=== PATIENT | female | born 1940 | race Caucasian/White ===

== ENCOUNTER 2018-01-15 12:30 | Inpatient (IN) | payer MEDICARE, MEDICAID ==
[2018-01-15] MEDS ORDERED: oxyCODONE/Acetamin 5/325 MG* TAB PO ONE (14:44)
--- NOTE | 2018-01-15 14:45 | ED ---
Back Pain - HPI Summary HPI Summary: Pt is a 77 y/o female who presents to the ED c/o low back pain. She states the pain began 4-5 days ago, is described as stabbing, and is located in her lower back. Pt denies any injury or fall. She denies any hematuria, incontinence, or loss of sensation. As per , the pt cannot walk without holding onto something due to the pain. Pt has taken Aleve but it has not helped her symptoms. Pt rates the pain as 4/4. She notes that the back pain started after she had her right knee twisted during an injection at [employer] PMHx DM. - History of Current Complaint Chief Complaint: EDBackInjuryPain Stated Complaint: BACK PAIN Time Seen by Provider: 01/15/18 14:30 Hx Obtained From: Patient, Family/Supervisor [employer] - Onset/Duration: Gradual Onset, Lasting Days - 4-5, Still Present Timing: Constant Back Pain Location: Is Discrete @ - Low back Severity Currently: Severe Pain Intensity: 8 Pain Scale Used: 0-10 Numeric Character: Sharp - Stabbing Aggravating Symptom(s): Movement, Walking Alleviating Symptom(s): Nothing Associated Signs And Symptoms: Negative: Numbness, Tingling, Bladder Incontinence, Bowel Incontinence - Allergies/Home Medications Allergies/Adverse Reactions: Allergies Allergy/AdvReac Type Severity Reaction Status Date / Time No Known Allergies Allergy Verified 01/15/18 12:34 PMH/Surg Hx/FS Hx/Imm Hx Endocrine/Hematology History: Reports: Hx Diabetes Cardiovascular History: Reports: Hx Hypertension Denies: Hx Pacemaker/ICD Respiratory History: Denies: Hx Asthma Sensory History: Denies: Hx Hearing Aid Psychiatric History: Denies: Hx Panic Disorder - Surgical History Surgery Procedure, Year, and Place: OOPHERECTOMY Infectious Disease History: No Infectious Disease History: Denies: Traveled Outside the [place] in Last 30 Days - Family History Known Family History: Positive: Diabetes - Social History Alcohol Use: None Hx Substance Use: No Substance Use Type: Reports: None Hx Tobacco Use: Yes Smoking Status (MU): Former Smoker Review of Systems Positive: flank pain. Negative: hematuria, incontinence Negative: Paresthesia, Numbness All Other Systems Reviewed And Are Negative: Yes Physical Exam - Summary Physical Exam Summary: Appearance: Well appearing, no pain distress Skin: warm, dry, reflects adequate perfusion Head/face: normal Eyes: EOMI, PRECIOUS ENT: normal Neck: supple, non-tender Respiratory: CTA, breath sounds present Cardiovascular: RRR, pulses symmetrical Abdomen: tenderness to right flank, soft Bowel: present Musculoskeletal: normal, strength/ROM intact Neuro: normal, sensory motor intact, A&Ox3 Triage Information Reviewed: Yes Vital Signs On Initial Exam: Initial Vitals Temp Pulse Resp BP Pulse Ox 97 F 78 16 124/110 97 01/15/18 12:35 01/15/18 12:35 01/15/18 12:35 01/15/18 12:35 01/15/18 12:35 Vital Signs Reviewed: Yes Diagnostics - Vital Signs Vital Signs Temp Pulse Resp BP Pulse Ox 01/15/18 12:35 97 F 78 16 124/110 97 - Laboratory Result Diagrams: 01/15/18 14:47 01/15/18 14:47 Lab Statement: Any lab studies that have been ordered have been reviewed, and results considered in the medical decision making process. - CT CT A/P CT Interpretation: No Acute Changes - No evidence of obstructive uropathy is noted. 25% compression of L3 vertebra. ED physician reviewed radiology report. CT Interpretation Completed By: Radiologist Back Pain Course/Dx - Course Course Of Treatment: Pt is a 77 y/o female who presents to the ED c/o low back pain. She states the pain began 4-5 days ago, is described as stabbing, and is located in her lower back. Pt denies any injury or fall. She denies any hematuria, incontinence, or loss of sensation. As per , the pt cannot walk without holding onto something due to the pain. Pt has taken Aleve but it has not helped her symptoms. A physical exam revealed tenderness to right flank. A CT A/P revealed No evidence of obstructive uropathy is noted. 25% compression of L3 vertebra. Final dx are back pain, L3 compression deformity, and unable to ambulate. Pt is admitted and is agreeable with this plan. - Diagnoses Provider Diagnoses: Back pain, Unable to ambulate Discharge - Sign-Out/Discharge Documenting (check all that apply): Patient Departure - Admit - Discharge Plan Condition: Stable Disposition: ADMITTED TO [facility] Referrals: No Primary Care Phys,NOPCP [Primary Care Provider] - - Attestation Statements Document Initiated by Scribe: Yes Documenting Scribe: Lindsey Newton Provider For Whom Scribe is Documenting (Include Credential): Mitch Munson MD Scribe Attestation: ILindsey, scribed for Mitch Munson MD on 01/15/18 at 1646.
[2018-01-15 15:00] LABS: ABS Basophils 0.1 10^3/ul (0-0.2); ABS Eosinophils 0.3 10^3/ul (0-0.6); ABS Lymphocytes 1.2 10^3/ul (1.0-4.8); ABS Monocytes 0.8 10^3/ul (0-0.8); ABS Neutrophils 6.4 10^3/ul (1.5-7.7); ABS Nucleated RBC 0 10^3/ul; Eosinophil % 3.2 % (0-6); Hematocrit 40 % (35-47); Hemoglobin 13.3 g/dl (12.0-16.0); Lymphocyte % 14.1 % (25-47); Mean Corpuscular HGB Conc 34 g/dl (31-36); Mean Corpuscular Hemoglobin 28 pg (27-31); Mean Corpuscular Volume 85 fL (80-97); Mean Platelet Volume 7.2 um3 (7.4-10.4); Nucleated Red Blood Cells % 0.1; Platelet Count 276 10^3/ul (150-450); Red Blood Count 4.69 10^6/ul (4.00-5.40); Red Cell Distribution Width 14 % (10.5-15); White Blood Count 8.8 10^3/ul (3.5-10.8)
[2018-01-15 15:08] LABS: INR 0.96 (0.77-1.02)
--- NOTE | 2018-01-15 15:16 | RAD ---
Indication: Right flank pain. CT of the abdomen and pelvis was performed without oral or IV contrast administration. Coronal and sagittal reconstructed images were obtained. Lung bases demonstrate no pleural fluid, nodules or masses. Heart is of normal size without evidence of pericardial effusion. There is a axial-type hiatal hernia noted. The liver is normal in size. No focal lesions or intrahepatic duct dilatation is noted. The gallbladder demonstrates no calcified gallstones. No pericholecystic fluid or wall thickening is noted. The pancreas is atrophic without evidence of mass or pancreatic duct dilatation. Spleen is normal size. No adrenal masses are noted. The kidneys demonstrate no hydronephrosis in either kidney. Atherosclerotic aorta is noted. No aneurysmal dilatation of the abdominal aorta is noted. CT of the pelvis demonstrates no retroperitoneal or pelvic lymphadenopathy. The colon is filled with stool. The uterus and ovaries are unremarkable. The bony structures demonstrates compression of the L3 vertebra of approximately 25-50%. Age of this is undetermined. IMPRESSION: No evidence of obstructive uropathy is noted. 25% compression of L3 vertebra.
[2018-01-15 15:38] LABS: EGFR Non-African American 79.6 (>60)
--- NOTE | 2018-01-15 18:02 | RAD ---
INDICATION: Atraumatic low back pain. COMPARISON: Same day CT of the abdomen and pelvis TECHNIQUE: 3 views of the lumbar spine were obtained. FINDINGS: There is age indeterminant compression deformity of the L3 vertebral body. The sclerotic appearance of the vertebral body would indicate a chronic process. At other lower thoracic and lumbar levels there is loss of intervertebral disc height. There is anterior marginal osteophyte formation, exuberant between L2/L3. The vertebral bodies are otherwise intact and appropriately aligned in the lateral plane. On the AP view there is levoconvex curvature with the apex at L2. . IMPRESSION: Degenerative changes of the lower thoracic and lumbar spine as described above. The sclerotic loss of vertebral height at L3 is chronic in appearance but there are no prior images of the lumbar spine for comparison to BE certain on chronicity. If the patient is exhibiting acute low back pain superior characterization can be made with MRI.
[2018-01-15] MEDS: Sertraline* 100 MG TAB PO SCH (20:13)
[2018-01-15] MEDS: Heparin VIAL(*) 5000 UNITS/ML VIAL (FIVE THOUSAND) SUBCUT SCH (21:23)
--- NOTE | 2018-01-15 22:02 | RAD ---
EXAM: MR Lumbar Spine Without Intravenous Contrast CLINICAL HISTORY: 77 years old, female; Pain; Low back pain; Patient HX: C/O stabbing pain in low back x 4-5 days, denies injury or fall; Additional info: Low back pain, compression deformity TECHNIQUE: Magnetic resonance images of the lumbar spine without intravenous contrast in multiple planes. COMPARISON: No relevant prior studies available. FINDINGS: Vertebrae: Modic type changes at the endplates of L2-L3 There is increased STIR signal in the endplates of L3 and L4. There is irregularity of the inferior endplate of L3 with small amount of fluid in the intervertebral disc. Findings are suspicious for discitis osteomyelitis at the L3-L4. No acute fracture. Epidural space: No paraspinal or epidural abscess. Spinal cord: Unremarkable. Normal signal. Soft tissues: Unremarkable. DISCS/SPINAL CANAL/NEURAL FORAMINA: L1-L2: Unremarkable. No stenosis. L2-L3: Disc bulge. Bilateral facet hypertrophy. Moderate bilateral neural foramina narrowing. No spinal canal stenosis. L3-L4: Disc bulge. Bilateral facet hypertrophy. There is ligamentum flavum hypertrophy. Moderate spinal canal stenosis. Moderate left and severe right neural foramina narrowing. L4-L5: Disc bulge. Bilateral facet hypertrophy. Moderate bilateral neural foramina narrowing. No spinal canal stenosis. L5-S1: Disc bulge. Bilateral facet hypertrophy. No spinal canal stenosis. Moderate bilateral neural foramina narrowing. IMPRESSION: Increased STIR signal in the endplates of L3-L4 with small amount of fluid in the intervertebral disc and the irregularity of the inferior endplate of L3. Finding suspicious for discitis osteomyelitis. No epidural or paraspinal abscess. Multilevel degenerative disc disease with neural foramina narrowing as described above. Moderate spinal canal stenosis at L3-L4.
--- NOTE | 2018-01-15 22:34 | HP ---
CC: Dr. Shane Bhandari * ADMISSION HISTORY AND PHYSICAL: DATE OF ADMISSION: 01/15/18 PRIMARY CARE PROVIDER: Dr. Shane Bhandari. ATTENDING FOR THIS ADMISSION: Dr. Valeriy Gusman.* (DICTATED BY EVERT YEUNG NP) CHIEF COMPLAINT: Lower back pain with inability to ambulate. HISTORY OF PRESENT ILLNESS: This is a very pleasant 77-year-old female patient who was in her usual state of health and approximately 4 to 5 days ago after she had had an injection in her right knee with Dr. Martin for a benign lipoma and some knee pain, she reported she started having some low back pain. The patient denies any trauma or injury to the area. Denies any falls. Denies any precipitating events other than some manipulation of the knee when she was in the orthopedist's office for her injection. The patient's , who is at the bedside, states that he also noticed that the patient was having to hold on to furniture and counter some things from the house to ambulate until got to the point where the pain became rather unbearable and the patient was having difficulty with ambulation. She presented to the emergency department for evaluation of her back pain. A CAT scan of the abdomen and pelvis was completed in the ED showing that she has approximately 25% compression of the L3 vertebra. The patient has no other acute findings on the CT, although this is not the most optimal test for evaluation of back pain; however, it does appear that this is new compression. The patient does not report any prior history again of trauma or injury. So, it is unclear how old or how new this compression deformity is. PAST MEDICAL HISTORY: Significant for hypertension, diabetes mellitus type 2, hyperlipidemia, vitamin D deficiency, and some mild cognitive impairment with short- term deficit. PAST SURGICAL HISTORY: Significant for oophorectomy many years ago. MEDICATIONS: At home include: 1. Sertraline 100 mg by mouth twice daily. 2. Amlodipine 5 mg by mouth daily. 3. Vitamin D3 5000 units by mouth daily. 4. CoQ10 of 200 mg daily. 5. Vitamin B12 of 500 mcg daily. 6. Aspirin 325 mg daily. 7. Cranberry extract 200 mg daily. 8. Atenolol 75 mg daily. 9. Metformin 500 mg b.i.d. SOCIAL HISTORY: The patient has a very remote history of smoking. Does not drink alcohol. Denies any illicit drug use. She lives at home with her , Reed, who is her healthcare proxy and is at the bedside currently. Reed's phone number at home is [phone]. Cell phone number is [phone]. The patient is a full code. REVIEW OF SYSTEMS: The patient denies any fever, fatigue, or chills. No chest pain, no shortness of breath, no palpitations. No abdominal pains. No urinary complaints. She does complain of localized back pain in the lower lumbar region. Denies any paresthesias or pain. No radicular complaints down the legs. Reports some weakness in the anterior thighs with ambulation. No further constitutional complaints. PHYSICAL EXAMINATION GENERAL: The patient is alert, well-appearing, in no acute distress. VITAL SIGNS: Currently, blood pressure 124/110, respiratory rate 16, heart rate 78, O2 saturation 97% on room air, temperature is 97.0. HEENT: The patient is atraumatic, normocephalic. PERRLA with nonicteric sclerae. NECK: Supple. Nontender. No JVD noted and no carotid bruit auscultated. LUNGS: Clear bilaterally to auscultation with no wheezing, rhonchi, or rales. CARDIOVASCULAR: S1, S2 present. Rate and rhythm are regular. No murmurs, gallops, or rubs noted. ABDOMEN: Soft, nontender, and nondistended. Positive bowel sounds in all 4 quadrants. No organomegaly noted. : Deferred. MUSCULOSKELETAL: There is no clubbing, no cyanosis, and no edema. She does have a soft tissue mass on the medial aspect of the right knee, which is nonpainful and it is fatty in nature. She has no radiating pain from the area. Calves are nontender. She has some point tenderness lateral to the lower lumbar spine; however, she is not guarding. Does not appear to have tenderness over the paraspinal muscles. NEUROLOGIC: She does have some short-term memory deficit, but she is very appropriate. She is alert and oriented x3. Shows no new neuro focalities. Her gross motor and sensation are intact. Her c application developer are equal. She does have a positive straight leg on the left hand side. PSYCHIATRIC: She is cooperative and appropriate. LABORATORY DATA: WBC is 8.8, RBC is 12.69, hemoglobin 13.3, hematocrit 40, and platelets 276,000. Sodium 138, potassium 4.2, chloride 103, CO2 of 28, BUN 20, creatinine 0.71, GFR 79.6, glucose 185, calcium 9.3. Total bilirubin 0.60 , AST 10, ALT 11, alk phos 113. Total protein 6.6, albumin 3.5, globulin 3.1, and lipase is 21. INR is 0.96. IMAGING: CAT scan of the abdomen and pelvis shows no evidence of obstructive uropathy and a 25% compression of the L3 vertebra. IMPRESSION: This is a 77-year-old female patient with no reported history of trauma that presents with what appears to be some compression deformity with intractable back pain in the lumbar region. PLAN: The patient will be admitted to observation. DIAGNOSES: 1. L3 compression. Currently, the CT imaging of the abdomen and pelvis does not really quantify her compression. We will start with plain films in the lumbar region and assess for any fracture. We will give her Percocet 1 tablet q.6 hours as needed for pain. Consult Physical Therapy and Occupational Therapy to determine the patient's ADLs and assessment if needs or any assistive devices if needed. If there are any acute findings on the lumbar films, we will do an MRI of the lumbar in the morning. She is not showing radicular symptoms, I am less concerned about any disk herniation, but if she has some narrowing of the disk spaces on her x-ray, then we may elect to do MRI in the morning. 2. Lipoma of the right knee. She follows with Dr. Martin. She did just have a steroid injection in the right knee approximately 1 week ago. She again is not having any pain and no issues with that. She apparently did have an ultrasound of the area recently and this is stable. 3. Hypertension. We will continue her on her atenolol and Norvasc. She has some diastolic hypertension on the way in, I am not sure if this is an accurate number or if it is related to pain. I have asked the nursing staff to repeat vital signs. 4. Mild cognitive impairment. She was on donepezil in the past. She is not currently. We will continue her sertraline at her current home dose. 5. Vitamin D deficiency. She takes 5000 units of vitamin D per day. I suspect she has underlying osteoporosis given this compression in her lumbar spine. She will likely need an outpatient bone scan, but again we will review the plain films of her spine and further assess from there. 6. For her diet, she can have heart-healthy with caffeine. 7. DVT prophylaxis with heparin 5000 units q.8. 8. Code status. She is full code. Healthcare proxy is her , Reed, as noted above. 9. Disposition. The patient will be admitted to observation status for intractable back pain. The rest of the patient's course will be determined by further diagnostics, laboratories and any other input from other providers as warranted during this admission. This plan of care has been discussed with Dr. Valeriy Gusman, the attending on this admission, and he is in agreement with the plan of care. Time Spent: 60 minutes. EVERT YEUNG, BUILDING CONSTRUCTION CONTRACTOR [id number]/[facility] #: [id number] FABI
[2018-01-15] MEDS ORDERED: Melatonin 3 MG TAB PO PRN (23:32)
[2018-01-16] MEDS: oxyCODONE/Acetamin 5/325 MG* TAB PO PRN ×2 (04:48→18:40)
[2018-01-16 05:06] LABS: Urine Appearance Clear; Urine Blood 2+ (Negative); Urine Color Straw; Urine Ketones Negative (Negative); Urine Protein Negative (Negative); Urine Specific Gravity 1.005 (1.010-1.030); Urine Urobilinogen Negative (Negative)
[2018-01-16] MEDS: Heparin VIAL(*) 5000 UNITS/ML VIAL (FIVE THOUSAND) SUBCUT SCH ×3 (05:46→21:30)
[2018-01-16] MEDS: Aspirin TAB* 325 MG PO SCH (07:40)
[2018-01-16] MEDS: Atenolol TAB* 50 MG PO SCH (07:41)
[2018-01-16] MEDS: Cholecalciferol TAB* 1000 UNITS PO SCH (07:41)
[2018-01-16] MEDS: amLODIPine TAB* 5 MG PO SCH (07:41)
[2018-01-16] MEDS: Sertraline* 100 MG TAB PO SCH ×2 (07:41→21:28)
[2018-01-16] MEDS: Atenolol TAB* 25 MG PO SCH (07:41)
[2018-01-16] MEDS ORDERED: metFORMIN* 500 MG TAB PO SCH (08:00)
[2018-01-16 11:04] LABS: ABS Basophils 0.1 10^3/ul (0-0.2); ABS Eosinophils 0.2 10^3/ul (0-0.6); ABS Lymphocytes 0.9 10^3/ul (1.0-4.8); ABS Monocytes 0.7 10^3/ul (0-0.8); ABS Neutrophils 5.5 10^3/ul (1.5-7.7); ABS Nucleated RBC 0 10^3/ul; Eosinophil % 3.3 % (0-6); Hematocrit 42 % (35-47); Hemoglobin 13.9 g/dl (12.0-16.0); Lymphocyte % 12.4 % (25-47); Mean Corpuscular HGB Conc 33 g/dl (31-36); Mean Corpuscular Hemoglobin 28 pg (27-31); Mean Corpuscular Volume 85 fL (80-97); Mean Platelet Volume 7.5 um3 (7.4-10.4); Nucleated Red Blood Cells % 0; Platelet Count 313 10^3/ul (150-450); Red Blood Count 4.94 10^6/ul (4.00-5.40); Red Cell Distribution Width 14 % (10.5-15); White Blood Count 7.4 10^3/ul (3.5-10.8)
[2018-01-16] MEDS ORDERED: Gadoteridol* (CONTRAST) 279.3 MG/ML 10 ML IV SCH (15:12)
--- NOTE | 2018-01-16 16:21 | RAD ---
HISTORY: r/o discitis COMPARISONS: MRI of the lumbar spine dated January 15, 2018 TECHNIQUE: The following sequences were obtained of the lumbar spine: Sagittal and axial T1-weighted images after contrast enhancement with a gadolinium-based intravenous contrast agent . FINDINGS: This study is read in conjunction with the MRI of January 15, 2018 There is mild enhancement at L3-L4 which is felt to represent enhancement of Modic type I reactive end plate changes. Again noted are chronic Modic type II changes at L2-L3. There is enhancement that edema of the sacral ala bilaterally. IMPRESSION: 1. THE END PLATE CHANGES AT L3-L4 NOTED ON THE PREVIOUS EXAMINATION ARE FELT TO REPRESENT ACUTE, MODIC TYPE I REACTIVE ENDPLATE CHANGES, WITHOUT DEFINITE FINDINGS OF OSTEOMYELITIS DISCITIS. 2. THERE IS ENHANCEMENT AND EDEMA OF THE SEQUELA BILATERALLY SUGGESTIVE OF BILATERAL SACRAL INSUFFICIENCY FRACTURES.
[2018-01-16] MEDS: Ketorolac INJ* 30 MG/ML 1 ML VIAL IV PUSH PRN (17:09)
[2018-01-16] MEDS ORDERED: Morphine VIAL* 4 MG/ML VIAL (1 ml vial) IV ONE (17:13)
[2018-01-16] MEDS ORDERED: Morphine INJ* 4 MG/ML 1 ML SYRINGE (NEW SYRINGE VERSION) ONE (17:15)
--- NOTE | 2018-01-16 18:08 | PN ---
Subjective Date of Service: 01/16/18 Interval History: Patient seen and examined. Pain manageable earlier today, however, per RN, patient's pain is increasing this evening. Denies fever or chills, no SOB, no further complaints. Objective Active Medications: Amlodipine Besylate (Norvasc Tab*) 5 mg PO DAILY [facility] Last Admin: 01/16/18 07:41 Dose: 5 mg Aspirin (Aspirin Tab*) 325 mg PO DAILY [facility] Last Admin: 01/16/18 07:40 Dose: 325 mg Atenolol (Tenormin Tab*) 50 mg PO DAILY [facility] Last Admin: 01/16/18 07:41 Dose: 50 mg Atenolol (Tenormin Tab*) 25 mg PO DAILY [facility] Last Admin: 01/16/18 07:41 Dose: 25 mg Cholecalciferol (Vitamin D Tab*) 5,000 units PO DAILY [facility] Last Admin: 01/16/18 07:41 Dose: 5,000 units Gadoteridol (Prohance* (Contrast)) 16 ml IV ONCE [facility] Stop: 01/18/18 15:11 Last Admin: 01/16/18 15:40 Dose: 16 ml Heparin Sodium (Porcine) (Heparin Vial(*)) 5,000 units SUBCUT Q8HR [facility] Last Admin: 01/16/18 13:14 Dose: 5,000 units Ketorolac Tromethamine (Toradol Inj*) 30 mg IV PUSH BID PRN PRN Reason: PAIN Stop: 01/20/18 17:34 Last Admin: 01/16/18 17:09 Dose: 30 mg Melatonin (Melatonin) 3 mg PO BEDTIME PRN; Protocol PRN Reason: Sleep Last Admin: 01/15/18 23:51 Dose: 3 mg Oxycodone/Acetaminophen (Percocet 5/325 Tab*) 1 tab PO Q6H PRN PRN Reason: PAIN Last Admin: 01/16/18 04:48 Dose: 1 tab Sertraline HCl (Zoloft*) 100 mg PO BID [facility] Last Admin: 01/16/18 07:41 Dose: 100 mg Vital Signs - 8 hr 01/16/18 01/16/18 01/16/18 11:33 15:24 17:22 Temperature 97.8 F 98.3 F Pulse Rate 70 87 Respiratory 16 16 25 Rate Blood Pressure 135/54 153/80 (mmHg) O2 Sat by Pulse 97 96 Oximetry Oxygen Devices in Use Now: None Appearance: Alert, NAD Eyes: No Scleral Icterus, PERRLA Ears/Nose/Mouth/Throat: NL Teeth, Lips, Gums, Mucous Membranes Moist Neck: NL Appearance and Movements; NL JVP, Trachea Midline Respiratory: Symmetrical Chest Expansion and Respiratory Effort, Clear to Auscultation Cardiovascular: NL Sounds; No Murmurs; No JVD, RRR, No Edema Abdominal: NL Sounds; No Tenderness; No Distention Extremities: No Clubbing, Cyanosis - right medial knee with soft lipoma, non- tender Neurological: Alert and Oriented x 3, - - LE weakness, using walker Nutrition: Taking PO's Result Diagrams: 01/16/18 10:38 01/15/18 14:47 Diagnostic Imaging: Patient Name: JOSELUIS CORNELIUS Medical Record#: [id number] Ordering Physician: Eugenia Leyva NP Acct.#: [id number] : 1940 Age: 77 Sex: F Location: SURGICAL STAY UNIT Exam Date: 01/16/18929 ADM Status: ADM Herminia Order Information: MRI LUMBAR SPINE W Accession Number: [id number] CPT: 25393 HISTORY: r/o discitis COMPARISONS: MRI of the lumbar spine dated January 15, 2018 TECHNIQUE: The following sequences were obtained of the lumbar spine: Sagittal and axial T1-weighted images after contrast enhancement with a gadolinium-based intravenous contrast agent . FINDINGS: This study is read in conjunction with the MRI of January 15, 2018 There is mild enhancement at L3-L4 which is felt to represent enhancement of Modic type I reactive end plate changes. Again noted are chronic Modic type II changes at L2- L3. There is enhancement that edema of the sacral ala bilaterally. IMPRESSION: 1. THE END PLATE CHANGES AT L3-L4 NOTED ON THE PREVIOUS EXAMINATION ARE FELT TO REPRESENT ACUTE, MODIC TYPE I REACTIVE ENDPLATE CHANGES, WITHOUT DEFINITE FINDINGS OF OSTEOMYELITIS DISCITIS. 2. THERE IS ENHANCEMENT AND EDEMA OF THE SEQUELA BILATERALLY SUGGESTIVE OF BILATERAL SACRAL INSUFFICIENCY FRACTURES. <Electronically signed by Noel Cisneros MD in [place]> 01/16/18 1617 Dictated By: Noel Cisneros MD Dictated Date/Time: 01/16/18 1617 Transcribed Date/Time: 01/16/18 1609 Copy to: Assess/Plan/Problems-Billing Assessment: This is a 77 year old female patient with report of acute onset intractable lower back pain without trauma. - Patient Problems (1) Lumbar pain Code(s): M54.5 - LOW BACK PAIN SNOMED Code(s): 445819200 Comment: - MRI as above, does not appear to be discitis - NS consulted - CRP elevated, but not Sed rate - Afebrile - Continue pain control - PT eval - Appreciate recs from NS (2) Hypertension Code(s): I10 - ESSENTIAL (PRIMARY) HYPERTENSION SNOMED Code(s): 72858073 Comment: - Stable on home meds (3) Mild cognitive impairment with memory loss Code(s): G31.84 - MILD COGNITIVE IMPAIRMENT, SO STATED SNOMED Code(s): 604893352 Comment: - Appropriate, some short term memory deficits (4) Depression Code(s): F32.9 - MAJOR DEPRESSIVE DISORDER, SINGLE EPISODE, UNSPECIFIED SNOMED Code(s): 48112728 Comment: - Continue sertraline, mood stable (5) DVT prophylaxis Code(s): FFB7987 - SNOMED Code(s): 922976154 Comment: - HSQ (6) Full code status Code(s): Z78.9 - OTHER SPECIFIED HEALTH STATUS SNOMED Code(s): 761869653 Status and Disposition: Inpatient, awaiting further recommendations by NS regarding options/POC.
--- NOTE | 2018-01-16 18:21 | PN ---
Progress Note - Progress Note Date of Service: 01/16/18 Note: Attempted to examine patient earlier this pm. Patient in MRI. MRI reveals DDD, No obvious infection. Pain control for now. Will attempt to examine patient later. Genaro Soto MD
[2018-01-17] MEDS: Heparin VIAL(*) 5000 UNITS/ML VIAL (FIVE THOUSAND) SUBCUT SCH ×3 (06:14→22:44)
[2018-01-17] MEDS: Aspirin TAB* 325 MG PO SCH (08:05)
[2018-01-17] MEDS: Atenolol TAB* 50 MG PO SCH (08:05)
[2018-01-17] MEDS: amLODIPine TAB* 5 MG PO SCH (08:05)
[2018-01-17] MEDS: Cholecalciferol TAB* 1000 UNITS PO SCH (08:05)
[2018-01-17] MEDS: Sertraline* 100 MG TAB PO SCH ×2 (08:05→20:23)
[2018-01-17] MEDS: Atenolol TAB* 25 MG PO SCH (08:05)
[2018-01-17] MEDS: oxyCODONE/Acetamin 5/325 MG* TAB PO PRN ×2 (08:09→20:23)
[2018-01-17 12:44] LABS: Urine Red Blood Cell 1+(3-5/hpf) (Absent); Urine White Blood Cell 3+(>20/hpf) (Absent)
--- NOTE | 2018-01-17 14:31 | PN ---
Subjective Date of Service: 01/17/18 Interval History: Patient seen and examined at bedside. Denies fever, chills, shortness of breath , chest discomfort, N/V/D. Denies urinary symptoms of dysuria, increased frequency or urgency. According to her son at bedside, she was urinating every 45 minutes last evening. Pt states that she continues to have lower back pain located in the midline that radiated to the sides. She complaints of a "pulling " sensation in her lower back when she is sitting up on the side of the bed. Pt states that she is able to get up and ambulate with a stand by assist. She has had UTIs in the past with associated back pain. Family History: Unchanged from Admission Social History: Unchanged from Admission Past Medical History: Unchanged from Admission Objective Active Medications: Amlodipine Besylate (Norvasc Tab*) 5 mg PO DAILY [facility] Aspirin (Aspirin Tab*) 325 mg PO DAILY [facility] Atenolol (Tenormin Tab*) 50 mg PO DAILY [facility] Atenolol (Tenormin Tab*) 25 mg PO DAILY [facility] Cholecalciferol (Vitamin D Tab*) 5,000 units PO DAILY [facility] Gadoteridol (Prohance* (Contrast)) 16 ml IV ONCE [facility] Stop: 01/18/18 15:11 Heparin Sodium (Porcine) (Heparin Vial(*)) 5,000 units SUBCUT Q8HR [facility] Ketorolac Tromethamine (Toradol Inj*) 30 mg IV PUSH BID PRN Reason: PAIN Stop: 01/20/18 17:34 Melatonin (Melatonin) 3 mg PO BEDTIME PRN; Protocol Reason: Sleep Oxycodone/Acetaminophen (Percocet 5/325 Tab*) 1 tab PO Q6H PRN Reason: PAIN Sertraline HCl (Zoloft*) 100 mg PO BID [facility] Vital Signs - 8 hr 01/17/18 01/17/18 01/17/18 07:23 08:00 08:09 Temperature 98.2 F Pulse Rate 80 Respiratory 16 18 18 Rate Blood Pressure 151/53 (mmHg) O2 Sat by Pulse 95 Oximetry 01/17/18 01/17/18 10:55 11:16 Temperature 97.8 F Pulse Rate 66 Respiratory 18 16 Rate Blood Pressure 104/67 (mmHg) O2 Sat by Pulse 91 Oximetry Oxygen Devices in Use Now: None Appearance: NAD, laying in bed Ears/Nose/Mouth/Throat: Mucous Membranes Moist Respiratory: Symmetrical Chest Expansion and Respiratory Effort, Clear to Auscultation Cardiovascular: NL Sounds; No Murmurs; No JVD, RRR Abdominal: NL Sounds; No Tenderness; No Distention, - - No CVA tenderness Extremities: No Edema, - - No tenderness with palpation of midline back, mild tenderness with palpation to the right lower back Skin: No Rash or Ulcers Neurological: Alert and Oriented x 3, NL Muscle Strength and Tone Lines/Tubes/Other Access: Clean, Dry and Intact Peripheral IV - site benign Nutrition: Taking PO's Result Diagrams: 01/16/18 10:38 01/15/18 14:47 Microbiology and Other Data: Microbiology 01/16/18 04:30 Urine Culture - Preliminary Urine Escherichia Coli Diagnostic Imaging: Exam Date: 01/16/18929 MRI LUMBAR SPINE W IMPRESSION: 1. THE END PLATE CHANGES AT L3-L4 NOTED ON THE PREVIOUS EXAMINATION ARE FELT TO REPRESENT ACUTE, MODIC TYPE I REACTIVE ENDPLATE CHANGES, WITHOUT DEFINITE FINDINGS OF OSTEOMYELITIS DISCITIS. 2. THERE IS ENHANCEMENT AND EDEMA OF THE SEQUELA BILATERALLY SUGGESTIVE OF BILATERAL SACRAL INSUFFICIENCY FRACTURES. Assess/Plan/Problems-Billing Assessment: Ms. Garcia is a 77 year old female with PMH significant for HTN, DM, HLD, Vit D def, mild cognitive impairment who reported to the emergency room with complaints of acute onset intractable lower back pain without trauma. - Patient Problems (1) Lumbar pain Code(s): M54.5 - LOW BACK PAIN SNOMED Code(s): 919467772 Comment: - L3 compression fracture, unknown "age" - MRI as above, does not appear to be discitis - Will get lumbar spine CT - Nurosurgery consult, pending - CRP elevated, but not Sed rate. Afebrile - Continue pain control and PT (2) Asymptomatic bacteriuria Code(s): R82.71 - BACTERIURIA SNOMED Code(s): 834692920 Comment: - Afebrile and no leukocytosis - Denies urinary symptoms - Urine culture with E Coli > 100,000 - Will place on Bactrim DS for 3 days (3) Hypertension Code(s): I10 - ESSENTIAL (PRIMARY) HYPERTENSION SNOMED Code(s): 47732834 Comment: - Normotensive, SBP 100-150's - Continue atenolol and amlodipine (4) Diabetes Code(s): E11.9 - TYPE 2 DIABETES MELLITUS WITHOUT COMPLICATIONS SNOMED Code(s) : 48178026 Comment: - Will check glucose daily - Consistent carb diet - Resume Metformin in the AM (5) Depression Code(s): F32.9 - MAJOR DEPRESSIVE DISORDER, SINGLE EPISODE, UNSPECIFIED SNOMED Code(s): 77320012 Comment: - Continue sertraline (6) Mild cognitive impairment with memory loss Code(s): G31.84 - MILD COGNITIVE IMPAIRMENT, SO STATED SNOMED Code(s): 893603696 Comment: - Some short term memory deficits (7) DVT prophylaxis Code(s): IXQ5074 - SNOMED Code(s): 178986316 Comment: - HSQ (8) Full code status Code(s): Z78.9 - OTHER SPECIFIED HEALTH STATUS SNOMED Code(s): 705190882 Status and Disposition: OBV to Inpatient, awaiting further recommendations by NS regarding options/POC. Discharge to home when medically stable.
--- NOTE | 2018-01-17 19:57 | RAD ---
EXAM: CT Lumbar Spine Without Intravenous Contrast CLINICAL HISTORY: 77 years old, female; Pain; Low back pain TECHNIQUE: Axial computed tomography images of the lumbar spine without intravenous contrast. All CT scans at this facility use at least one of these dose optimization techniques: automated exposure control; mA and/or kV adjustment per patient size (includes targeted exams where dose is matched to clinical indication); or iterative reconstruction. Coronal and sagittal reformatted images were created and reviewed. COMPARISON: P WO MRI LUMBAR SPINE W/O 01/15/2018 8:30 PM FINDINGS: Vertebrae and disc spaces: There is a moderate compression deformity of the L3 vertebral body with sclerosis suggesting a chronic process. Degenerative endplate osteophyte formation is noted in the lumbar spine and visualized portions of the thoracic spine, quite pronounced at the L2/L3 level. Moderate degenerative disc space narrowing with vacuum phenomenon at L2/L3 and L3/L4, Mild to moderate at L4/L5. Irregularity again noted in the inferior L3 end plate with lucency in the vertebral body raising the possibility of discitis/osteomyelitis. Facet joint hypertrophy is noted at L4/L5 and L5/S1, left greater than right, resulting in mild to moderate left neural foramen narrowing. The bones are diffusely demineralized. No acute fracture is visible. Other bony structures: Cortical irregularity is noted in the anterior aspect of the right sacrum which could represent acute fracture. Soft tissues: Unremarkable. Vasculature: There is calcified plaque of the abdominal aorta and bilateral iliac arteries. No aortic aneurysm. Other findings: Moderate hiatal hernia. IMPRESSION: 1. Cortical irregularity in the anterior aspect of right sacrum which could represent insufficiency fracture. Of note, bilateral sacral insufficiency fractures were described in the report from enhanced MRI dated 01/16/18. Images are not available for direct comparison. 2. Multilevel degenerative change, most pronounced at L2/L3. 3. Inferior endplate irregularity and lucency noted in the L3 vertebral body. While the CT appearance is concerning for discitis/osteomyelitis, report from contrast-enhanced MRI performed yesterday (01/16/18) reveals no indication of such.. Recommend correlation with images from 01/16/18 -enhanced MRI which are not available at the time of dictation. 4. Other nonemergent findings as above.
[2018-01-17] MEDS: Sulfamethox/Trimethoprim DS 800/160* TAB PO SCH (20:23)
[2018-01-17] MEDS: Ketorolac INJ* 30 MG/ML 1 ML VIAL IV PUSH PRN (20:24)
--- NOTE | 2018-01-18 02:45 | CONS ---
CONSULTATION REPORT: DATE OF CONSULT: 01/17/18 HISTORY OF PRESENT ILLNESS: The patient is a very pleasant 77-year-old female with history of dementia, hypertension, diabetes, hyperlipidemia, and osteoporosis, who was admitted because of severe back pain. The patient had remote history of injection in the right knee by Dr. Martin for a benign lipoma. Initially when the patient was admitted, she reported that she denied any trauma but on examination, the patient told that she had an episode of going down the stairs very abruptly as she was pulled by her dogs. She denies fall at that time, but did have quite abrupt movement. She reports that then she started having difficulty going up and down stairs. In the last week, she has been having significant back pain. Pain does not radiate to the lower extremity. The patient denies any weakness, numbness, or tingling of the extremities. She denies any urinary or GI incontinence. The patient reports ambulating with difficulty, although the problem is when she is trying to get out of bed. The patient's history was obtained from the patient's son, the patient, and the patient's family including her sons, who were in the bedside. PAST MEDICAL HISTORY: Hypertension, diabetes, hyperlipidemia, vitamin D deficiency, cognitive impairment with short-term deficits, dementia. PAST SURGICAL HISTORY: Oophorectomy. MEDICATIONS: The patient at home was takin. Sertraline. 2. Amlodipine. 3. Vitamin D. 4. Coenzyme Q10. 5. Vitamin B12. 6. Aspirin. 7. Cranberry extract. 8. Atenolol. 9. Metformin. SOCIAL HISTORY: Tobacco negative. Alcohol negative. Recreational drug use negative. Patient is . Lives with her . PHYSICAL EXAM: The patient is not in acute distress. She is awake, alert, and oriented x3, but has some difficulty recalling events. According to her son, the patient has dementia. Her pupils are equal and reactive. Cranial nerves II through XII are grossly intact. Motor 4 to 5/5 in all extremities. Sensory grossly intact to light touch. Deep tendon reflexes +1 bilaterally. No clonus , no Babinski. Akhtar is negative. Straight leg raise negative in the sitting position. The patient does have a lipoma of her right knee and there is some focal soft tissue mass infiltration. DIAGNOSTIC STUDIES/LAB DATA: On imaging, the patient had MRI of the lumbar spine that revealed chronic appearing compression fracture of L3 with some increased STIR signal at the endplates. Initially per radiology report there was suspicion of diskitis, osteomyelitis, which prompt the consult but after repeat MRI with contrast and reviewed by Dr. Cisnerso. Dr. Cisneros recommended that these findings consistent with degenerative disk disease. There is also some increasing in the sacrum that may represent sacral insufficiency fractures. The patient continued to have also x-ray of her lumbar spine revealing L1 chronic compression fracture with multi-level degenerative disk disease and disk vacuum phenomenon. Similar findings were also observed in the CT scan of the abdomen. ASSESSMENT: The patient is a very pleasant 77-year-old female with no apparent trauma but an episode of possible back injury approximately 2 weeks ago with complaints of back pain with CT and MRI finding consistent with L3 possible chronic fracture, severe degenerative disk disease and sacral insufficiency fractures. PLAN: The patient at this point is doing quite well. She is able to ambulate and she has no tenderness to palpation of thoracic and lumbar spine and she has full range of motion of the cervical spine. Based on the imaging, it seems that the patient has sacral insufficiency fractures with possible subacute or chronic L3 fracture. I do not think that operative intervention is required at this point. I would like to obtain reconstruction of the CT of the lumbar spine and sacrum and review with the radiologist. The patient may have an upright x-ray of her lumbar spine in a.m. and if she continues to have significant pain, she could have an LSO brace for comfort. The patient is treated for UTI as her CRP was slightly elevated, but the sed rate and wbc were within normal limits. The patient need to follow up with a new x-ray of her lumbar spine in 2 weeks in my office and if her pain persists, she may require a repeat MRI of her lumbar spine with and without contrast. Plan was discussed in details with the patient and the patient's family, appreciate Internal Medicine care. Thank you for allowing us to participate in the care of this patient. Please do not hesitate to contact our office in case you have any further questions or concerns regarding the care of this patient. [id number]/[facility] #: [id number] FABI
[2018-01-18] MEDS: Heparin VIAL(*) 5000 UNITS/ML VIAL (FIVE THOUSAND) SUBCUT SCH (06:28)
[2018-01-18] MEDS: Ketorolac INJ* 30 MG/ML 1 ML VIAL IV PUSH PRN (06:47)
[2018-01-18] MEDS: Aspirin TAB* 325 MG PO SCH (10:02)
[2018-01-18] MEDS: Cholecalciferol TAB* 1000 UNITS PO SCH (10:02)
[2018-01-18] MEDS: amLODIPine TAB* 5 MG PO SCH (10:02)
[2018-01-18] MEDS: Sulfamethox/Trimethoprim DS 800/160* TAB PO SCH (10:03)
[2018-01-18] MEDS: Atenolol TAB* 25 MG PO SCH (10:03)
[2018-01-18] MEDS: Sertraline* 100 MG TAB PO SCH (10:03)
[2018-01-18] MEDS: Atenolol TAB* 50 MG PO SCH (10:03)
--- NOTE | 2018-01-18 11:03 | RAD ---
Indication: Back pain. 2 views of lumbar spine demonstrate mild compression of L3. Degenerative disc disease at L2-L3 and L3-L4 is noted. Diffuse osteopenia is noted. When compared to previous exam of January 15, 2018 no significant change is noted. IMPRESSION: Mild compression of L3 vertebra with degenerative disc disease at L2-L3 and L3-L4. Findings are unchanged since January 15, 2018.
--- NOTE | 2018-01-18 12:47 | PN ---
Subjective Date of Service: 01/18/18 Interval History: Patient seen and examined at bedside. Denies fever, chills, shortness of breath , chest discomfort, N/V/D. Pt states that her low back pain is improving and not bothering her much today. She is anxious to get home. Family History: Unchanged from Admission Social History: Unchanged from Admission Past Medical History: Unchanged from Admission Objective Active Medications: Amlodipine Besylate (Norvasc Tab*) 5 mg PO DAILY [facility] Aspirin (Aspirin Tab*) 325 mg PO DAILY [facility] Atenolol (Tenormin Tab*) 50 mg PO DAILY [facility] Atenolol (Tenormin Tab*) 25 mg PO DAILY [facility] Cholecalciferol (Vitamin D Tab*) 5,000 units PO DAILY [facility] Gadoteridol (Prohance* (Contrast)) 16 ml IV ONCE [facility] Stop: 01/18/18 15:11l Heparin Sodium (Porcine) (Heparin Vial(*)) 5,000 units SUBCUT Q8HR [facility] Melatonin (Melatonin) 3 mg PO BEDTIME PRN; Protocol Reason: Sleep Metformin HCl (Glucophage*) 500 mg PO BID [facility] Oxycodone/Acetaminophen (Percocet 5/325 Tab*) 1 tab PO Q6H PRN Reason: PAIN Sertraline HCl (Zoloft*) 100 mg PO BID [facility] Trimethoprim/Sulfamethoxazole (Bactrim Ds 800/160 Tab*) 1 tab PO BID [facility] Stop: 01/20/18 20:59 Vital Signs - 8 hr 01/18/18 01/18/18 07:31 09:51 Temperature 98.3 F Pulse Rate 74 Respiratory 16 16 Rate Blood Pressure 152/66 (mmHg) O2 Sat by Pulse 94 Oximetry Oxygen Devices in Use Now: None Appearance: NAD, sitting up in bed Ears/Nose/Mouth/Throat: Mucous Membranes Moist Respiratory: Symmetrical Chest Expansion and Respiratory Effort, Clear to Auscultation Cardiovascular: NL Sounds; No Murmurs; No JVD, RRR Abdominal: NL Sounds; No Tenderness; No Distention Extremities: No Edema Skin: No Rash or Ulcers Neurological: Alert and Oriented x 3, NL Muscle Strength and Tone Lines/Tubes/Other Access: Clean, Dry and Intact Peripheral IV - site benign Nutrition: Taking PO's Result Diagrams: 01/16/18 10:38 01/15/18 14:47 Microbiology and Other Data: Microbiology 01/16/18 04:30 Urine Culture - Preliminary Urine Escherichia Coli Diagnostic Imaging: Exam Date: 01/16/18929 MRI LUMBAR SPINE W IMPRESSION: 1. THE END PLATE CHANGES AT L3-L4 NOTED ON THE PREVIOUS EXAMINATION ARE FELT TO REPRESENT ACUTE, MODIC TYPE I REACTIVE ENDPLATE CHANGES, WITHOUT DEFINITE FINDINGS OF OSTEOMYELITIS DISCITIS. 2. THERE IS ENHANCEMENT AND EDEMA OF THE SEQUELA BILATERALLY SUGGESTIVE OF BILATERAL SACRAL INSUFFICIENCY FRACTURES. Assess/Plan/Problems-Billing Assessment: Ms. Garcia is a 77 year old female with PMH significant for HTN, DM, HLD, Vit D def, mild cognitive impairment who reported to the emergency room with complaints of acute onset intractable lower back pain without trauma. - Patient Problems (1) Lumbar pain Code(s): M54.5 - LOW BACK PAIN SNOMED Code(s): 780937101 Comment: - L3 compression fracture, unknown "age" - MRI as above, does not appear to be discitis - Lumbar spine CT, see report - Nurosurgery consult, input appreciated - Continue pain control and PT - Follow up with neurosurgery in 2 weeks (2) Asymptomatic bacteriuria Code(s): R82.71 - BACTERIURIA SNOMED Code(s): 621256494 Comment: - Afebrile and no leukocytosis - Denies urinary symptoms - Urine culture with E Coli > 100,000 - Continue Bactrim DS day 2/3 (3) Hypertension Code(s): I10 - ESSENTIAL (PRIMARY) HYPERTENSION SNOMED Code(s): 01277055 Comment: - Normotensive, SBP 130-150's - Continue atenolol and amlodipine (4) Diabetes Code(s): E11.9 - TYPE 2 DIABETES MELLITUS WITHOUT COMPLICATIONS SNOMED Code(s) : 85232172 Comment: - Glucose 130-180's - Consistent carb diet - Resume Metformin tonight (5) Depression Code(s): F32.9 - MAJOR DEPRESSIVE DISORDER, SINGLE EPISODE, UNSPECIFIED SNOMED Code(s): 40169283 Comment: - Continue sertraline (6) Mild cognitive impairment with memory loss Code(s): G31.84 - MILD COGNITIVE IMPAIRMENT, SO STATED SNOMED Code(s): 773521402 Comment: - Some short term memory deficits (7) DVT prophylaxis Code(s): GTW1071 - SNOMED Code(s): 701089412 Comment: - HSQ (8) Full code status Code(s): Z78.9 - OTHER SPECIFIED HEALTH STATUS SNOMED Code(s): 412259652 Status and Disposition: Inpatient. Stable for discharge to home.
[2018-01-18 14:47] VITALS: BP 150/63
[2018-01-18] MEDS ORDERED: metFORMIN* 500 MG TAB PO SCH (21:00)
--- NOTE | 2018-01-19 06:39 | DS ---
CC: Dr. Shane Bhandari; Dr. Katrin Soto * DISCHARGE SUMMARY: DATE OF ADMISSION: 01/15/18 DATE OF DISCHARGE: 01/18/18 ATTENDING PHYSICIAN: Dr. Valeriy Gusman * (dictated by Víctor Montiel NP). PRIMARY CARE PROVIDER: Dr. Shane Bhandari. PRIMARY DIAGNOSES: 1. Low back pain. 2. Asymptomatic Escherichia coli bacteriuria. 3. Bilateral sacral insufficiency fractures. SECONDARY DIAGNOSES: 1. Lipoma of the right knee. 2. Hypertension. 3. Mild cognitive impairment. 4. Vitamin D deficiency. CONSULTATIONS WHILE IN THE HOSPITAL: Dr. Katrin Soto with Neurosurgery. STUDIES WHILE IN THE HOSPITAL: 1. Abdomen and pelvis CT on 01/15/18. Radiologist's impression: No evidence for obstructive uropathy is noted. 2. Lumbar spine x-ray on 01/15/18. Radiologist's impression: Degenerative changes of the lower thoracic and lumbar spine as described above. The sclerotic loss of vertebral height at L3 is chronic in appearance, but there are no prior images of the lumbar spine for comparison to be certain on chronicity. If the patient is exhibiting acute low back pain, superior characterization can be made with MRI. 3. Lumbar spine MRI without contrast on 01/15/18. Radiologist's impression: Increased STIR signal in the endplates of L3 to L4 with small amount of fluid in the intervertebral disk and the irregularity of the inferior endplate of L3. Findings suspicious for diskitis/osteomyelitis. No epidural or paraspinal abscess. Multilevel degenerative disk disease with neural foraminal narrowing as described above. Moderate spinal canal stenosis at L3 to L4. 4. MRI of lumbar spine with contrast on 01/16/18. Radiologist's impression: The endplate changes at L3-L4 noted on the previous examination are felt to represent acute Modic type I reactive endplate changes, without definitive findings of osteomyelitis/diskitis. There is enhancement and edema of the _ bilaterally suggestive of bilateral sacral insufficiency fractures. 5. Lumbar spine CT on 01/17/18. Radiologist's impression: Cortical irregularity in the anterior aspect of the right sacrum, which could represent insufficiency fracture. Of note, bilateral sacral insufficiency fractures were described in the report of the enhanced MRI dated 01/16/18. Images are now available for direct comparison. Multilevel degenerative change, most pronounced at L2-L3. Inferior endplate irregularity and noted in the L3 vertebral body. While the CT appearance is concerning for diskitis/ osteomyelitis, report from contrast enhanced MRI performed yesterday, 01/16/18 revealed no indication of such. Recommend correlation with images from enhanced MRI, which are not available at the time of dictation. Other nonemergent findings as above. 6. Lumbar spine x-ray from 01/18/18. Radiologist's impression: Mild compression of L3 vertebra and degenerative disk disease at L2 to L3 and L3 to L4. Findings are unchanged since 01/15/18. DISCHARGE MEDICATIONS: New home medications: 1. Bactrim 800\160 one tablet oral twice daily for 4 more doses. 2. Acetaminophen 650 mg oral every 4 hours as needed for pain. Continued home medications: 1. Zoloft. 2. Atenolol 75 mg oral daily. 3. Metformin 500 mg oral twice daily. 4. Triamcinolone 0.1% cream applied topical twice daily. 5. Amlodipine 5 mg oral daily. 6. Vitamin D3 5000 units oral daily. 7. COQ10 200 oral daily. 8. Vitamin B12 500 mcg oral daily. 9. Cranberry 200 mg oral daily. 10. Aspirin 325 mg oral daily. HISTORY OF PRESENT ILLNESS/HOSPITAL COURSE: Ms. Garcia is a 77-year-old female with past medical history significant for hypertension, diabetes mellitus type 2 , hyperlipidemia, vitamin D deficiency, mild cognitive impairment with short- term deficit, who was in her usual state of health when approximately 4 to 5 days prior to her presentation had an injection into her right knee by Dr. Martin for a benign lipoma of her right knee. She reported developing low back pain. She denied any trauma or injury to the area. She denied any precipitating events such as manipulation while she was in the orthopedics office for her injection. Her significant other stated that he had also noticed that she was having to hold onto furniture and the counter to get around the house. The pain became unbearable. She presented to the emergency room for further evaluation. While in the emergency room, she had a CT scan of her abdomen and pelvis showing approximately 25% compression of her L3 vertebra. She had essentially unremarkable labs. Hospitalists were asked to evaluate the patient for admission. While in the hospital, the patient had a lumbar MRI initially showing signs of a possible diskitis/osteomyelitis. She had an MRI with contrast showing no signs of osteomyelitis or diskitis. She was seen in consultation by Dr. Soto with Neurosurgery who felt that her pain could be secondary to bilateral sacral insufficiency fractures. The patient had a urine come back showing 100,000 E. coli urinary tract infection. She had blood cultures with no growth. She was afebrile. No leukocytosis. She was started on Bactrim for plans for treatment for 3 days for asymptomatic bacteremia. The patient was seen in consultation by physical therapy, was able to ambulate with a walker. Her pain was controlled. She was requiring only Toradol for her pain management. She is stable for discharge home today. Ms. Garcia is stable for discharge home today. Vital signs are as follows: Temperature 98.3, heart rate 77, respiratory rate 16, O2 sat 95% on room air, blood pressure 150/63. DISCHARGE PLAN: Ms. Garcia will be discharged to home. Activity as tolerated. She should be on a consistent carbohydrate diet. In regards to her back pain, I suspect this could be secondary to her sacral fractures and her L3 compression fracture. She will be continued on acetaminophen every 4 hours as needed for pain and she was instructed that she can take 500 to 650 mg and if this is not working, she could increase to 1 g 3 times daily. In regards to her E. coli urinary tract infection, she has been continued on Bactrim DS 800/ 160 twice daily for 4 more doses. She should follow up with Dr. Soto in 1 to 2 weeks. She has been asked to call the office and schedule followup appointment. If she develops worsening back pain, she should be considered to have an MRI and could be fitted for an LSO brace. She has a followup appointment with her primary care provider, Dr. Bhandari on 01/23/18 at 11:30 a.m. She has been asked to return to the emergency room for any chest pain, shortness of breath. She has been resumed on her other usual home medications. This is a summarized report of a complex medical history and hospital stay. For further details, please see the entire medical record. TIME SPENT: Time for this discharge was approximately 50 minutes, greater than half of that was spent with the patient and her family discussing discharge plans and instructions. CONDITION ON DISCHARGE: Stable. VÍCTOR MONTIEL, QUALITY LEAD [id number]/[facility] #: [id number] [facility] HOSPITALGricelda
== END 2018-01-18 14:04 | disposition home or self-care (01) | DRG 543 ==
LOC: ED 12:30 → SSU 17:12 → OBSVTOIN 01-17 19:38
PROVIDERS: ADMIT Internal Medicine; ATTEND Internal Medicine
DX: M84.48XA Pathological fracture, other site, initial encounter for fracture (principal); N39.0 Urinary tract infection, site not specified; M48.56XA Collapsed vertebra, not elsewhere classified, lumbar region, initial encounter for fracture; M54.5 Low back pain; I10 Essential (primary) hypertension; E55.9 Vitamin D deficiency, unspecified; E11.9 Type 2 diabetes mellitus without complications; E78.5 Hyperlipidemia, unspecified; D17.23 Benign lipomatous neoplasm of skin and subcutaneous tissue of right leg; F03.90 Unspecified dementia, unspecified severity, without behavioral disturbance, psychotic disturbance, mood disturbance, and anxiety; M81.0 Age-related osteoporosis without current pathological fracture; M51.36 Other intervertebral disc degeneration, lumbar region; F32.9 Major depressive disorder, single episode, unspecified; B96.20 Unspecified Escherichia coli [E. coli] as the cause of diseases classified elsewhere; Z87.891 Personal history of nicotine dependence; Z83.3 Family history of diabetes mellitus; Z90.721 Acquired absence of ovaries, unilateral; Z79.82 Long term (current) use of aspirin; Z87.440 Personal history of urinary (tract) infections; Z79.4 Long term (current) use of insulin; Z79.84 Long term (current) use of oral hypoglycemic drugs
CPT/HCPCS: 36415; 72100; 72131; 72148; 72149; 74176; 80053; 81003; 81015; 83690; 85025; 85610; 85652; 85730; 86140; 87040; 87077; 87086; 87186; 90686; 99283; A9270-GY; A9579; G0378; G8978-GP-CK; G8979-GP-CI; G8987-GO-CJ; G8988-GO-CI; J1644; J1885; J2270

== ENCOUNTER 2018-01-20 00:54 | Emergency (ER) | payer MEDICARE, MEDICAID ==
[2018-01-20] MEDS ORDERED: oxyCODONE/Acetamin 5/325 MG* TAB PO ONE (01:15)
--- NOTE | 2018-01-20 01:16 | ED ---
Abdominal Pain/Female - HPI Summary HPI Summary: The pt is a 77 y/o female presenting to [facility] c/o acute on chronic back pain worsened today. She was seen at [facility] 4 days ago for the back pain and discharged with a Tylenol prescription to no relief. The aching pain rated 8/ 10 is aggravated by walking and movement. She denies abd pain. - History of Current Complaint Stated Complaint: BACK PAIN Time Seen by Provider: 01/20/18 01:06 Hx Obtained From: Patient Onset/Duration: Other - Acute on chronic Severity Currently: Severe Pain Intensity: 8 Pain Scale Used: 0-10 Numeric Location: Diffuse - Back Aggravating Factor(s): Movement, Other: - Walking Associated Signs and Symptoms: Positive: Negative - Abd pain, Back Pain Allergies/Adverse Reactions: Allergies Allergy/AdvReac Type Severity Reaction Status Date / Time No Known Allergies Allergy Verified 01/15/18 12:34 PMH/Surg Hx/FS Hx/Imm Hx Previously Healthy: No Endocrine/Hematology History: Reports: Hx Diabetes - DM II Cardiovascular History: Reports: Hx Hypertension Denies: Hx Pacemaker/ICD Respiratory History: Denies: Hx Asthma Sensory History: Reports: Hx Contacts or Glasses Denies: Hx Hearing Aid Opthamlomology History: Reports: Hx Contacts or Glasses Psychiatric History: Reports: Hx Depression Denies: Hx Panic Disorder - Surgical History Surgery Procedure, Year, and Place: OOPHERECTOMY. Hysterectomy Infectious Disease History: Denies: Traveled Outside the [place] in Last 30 Days - Family History Known Family History: Positive: Diabetes - Social History Occupation: Retired Alcohol Use: None Hx Substance Use: No Substance Use Type: Reports: None Hx Tobacco Use: Yes Smoking Status (MU): Former Smoker Review of Systems Negative: Fever Negative: Abdominal Pain Positive: Other - Positive: Acute on chronic back pain All Other Systems Reviewed And Are Negative: Yes Physical Exam - Summary Physical Exam Summary: Appearance: Well appearing, no pain distress Skin: warm, dry, reflects adequate perfusion Head/face: normal Eyes: EOMI, PRECIOUS ENT: normal Neck: supple, non-tender Respiratory: CTA, breath sounds present Cardiovascular: RRR, pulses symmetrical Abdomen: non-tender, soft Bowel sounds : present Musculoskeletal: Mild spam of the lumbar vertebrae, strength/ROM intact Neuro: normal, sensory motor intact, A&Ox3 Triage Information Reviewed: Yes Vital Signs On Initial Exam: Initial Vital Signs Temp 99.1 F 01/20/18 01:00 Pulse 92 01/20/18 01:00 Resp 20 01/20/18 01:00 BP 130/79 01/20/18 01:00 Pulse Ox 93 01/20/18 01:00 Vital Signs Reviewed: Yes Abdominal Pain Fem Course/Dx - Course Course Of Treatment: A 77 year-old F presents to the ED with a CC of acute on chronic back pain worsened today. She was seen at [facility] 4 days ago for the back pain and discharged with a Tylenol prescription to no relief. The aching pain rated 8/10 is aggravated by walking and movement. She denies abd pain. A physical exam revealed mild spam of the lumbar vertebrae. In the ED course, pt was given Oxycodone 2 tab PO which improved the symptoms. Patient will be discharged with a final Dx of compression fracture of the L3 lumbar vertebra and back pain. Pt is agreeable with this plan. Allergies noted - Diagnoses Differential Diagnosis: Positive: Other - back pains Provider Diagnoses: Compression fracture of L3 lumbar vertebra, Back pain Discharge - Sign-Out/Discharge Documenting (check all that apply): Patient Departure - DC - Discharge Plan Condition: Improved Disposition: HOME Prescriptions: Oxycodone HCl/Acetaminophen [Percocet 2.5-325 mg (NF)] 1 tab PO Q8H PRN #10 tab MDD 3 PRN Reason: Pain Patient Education Materials: Vertebral Compression Fracture (ED), Back Pain (ED ) Referrals: No Primary Care Phys,NOPCP [Primary Care Provider] - [facility] [Outside] - 3 Days Additional Instructions: Return to ED for any new or worsening symptoms - Billing Disposition and Condition Condition: IMPROVED Disposition: Home - Attestation Statements Document Initiated by Scribe: Yes Documenting Scribe: Zhanna Calderon Provider For Whom Brian is Documenting (Include Credential): Dr. Mitch Munson MD Scribe Attestation: Zhanna Workman scribed for Dr. Mitch Munson MD on 01/20/18 at 0555. Scribe Documentation Reviewed: Yes Provider Attestation: The documentation as recorded by the Zhanna rosas accurately reflects the service I personally performed and the decisions made by me, Dr. Mitch Munson MD
[2018-01-20 04:00] VITALS: BP 141/73
== END 2018-01-20 04:00 | disposition home or self-care (01) ==
LOC: ED 00:54
DX: M48.56XA Collapsed vertebra, not elsewhere classified, lumbar region, initial encounter for fracture (principal); M54.9 Dorsalgia, unspecified; Z87.891 Personal history of nicotine dependence
CPT/HCPCS: 99283; A9270-GY

== ENCOUNTER 2018-02-19 07:37 | Inpatient (IN) | payer MEDICARE, MEDICAID ==
[2018-02-19] MEDS ORDERED: Tranexamic Acid 1,000 MG/10 ML 1,000 MG in NS 0.9% 50 ML* 50 ML IV ONE (07:44)
[2018-02-19] MEDS ORDERED: Tranexamic Acid 1,000 MG/10 ML SDV IV ONE (07:47)
[2018-02-19] MEDS ORDERED: Succinylcholine* 20 MG/ML 10 ML VIAL ONE (07:50)
[2018-02-19] MEDS ORDERED: KETAMINE HCL* 50 MG/ML 10 ML VIAL ONE (07:50)
[2018-02-19 07:55] LABS: Hematocrit 26 % (35-47); Hemoglobin 8.8 g/dl (12.0-16.0); Mean Corpuscular HGB Conc 33 g/dl (31-36); Mean Corpuscular Hemoglobin 28 pg (27-31); Mean Corpuscular Volume 83 fL (80-97); Mean Platelet Volume 7.1 um3 (7.4-10.4); Platelet Count 494 10^3/ul (150-450); Red Blood Count 3.18 10^6/ul (4.00-5.40); Red Cell Distribution Width 14 % (10.5-15); White Blood Count 22.9 10^3/ul (3.5-10.8)
[2018-02-19] MEDS ORDERED: Norepinephrine 16MCG/ML IVPRE* 4,000 MCG/250 ML BAG IV ONE (07:55)
[2018-02-19] MEDS ORDERED: Propofol* 100 ML ONE (07:56)
--- NOTE | 2018-02-19 07:59 | ED ---
GI/ HPI - HPI Summary HPI Summary: Pt is a 77 y/o female brought in by EMS who presents to the ED c/o hematemesis. As per EMS, she woke up at 3:00 this morning and didnt feel well. Around 6:00 she began vomiting all blood. There was mention of a possible fall as well. Pt feels weak. Pt denies being on any blood thinners or ASA. She denies any alcohol use. Pt denies any hx of stomach ulcers, AFib, HTN, or DM, however her medical records show she does have HTN, DM, and HLD. While in the room she had the sudden urge to produce a BM, and the stool was black and tarry. Pt is a level 5 caveat due to her decreased responsiveness. - History of Current Complaint Stated Complaint: GI BLEED/VOMITING BLOOD Hx Obtained From: Patient, EMS, Medical Records Hx From Patient Unobtainable Due To: Other - Lack of responsiveness Onset/Duration: Started Hours Ago - 6:00, Still Present Timing: Constant Associated Signs and Symptoms: Positive: Hematemesis, Pallor, Weakness, Nausea, Melena Alleviating Factor(s): Nothing - Additional Pertinent History Primary Care Physician: [id number] - Allergy/Home Medications Allergies/Adverse Reactions: Allergies Allergy/AdvReac Type Severity Reaction Status Date / Time No Known Allergies Allergy Verified 01/15/18 12:34 PMH/Surg Hx/FS Hx/Imm Hx Endocrine/Hematology History: Reports: Hx Diabetes - DM II Cardiovascular History: Reports: Hx Hypertension Denies: Hx Pacemaker/ICD Respiratory History: Denies: Hx Asthma Sensory History: Reports: Hx Contacts or Glasses Denies: Hx Hearing Aid Opthamlomology History: Reports: Hx Contacts or Glasses Psychiatric History: Reports: Hx Depression Denies: Hx Panic Disorder - Surgical History Surgery Procedure, Year, and Place: OOPHERECTOMY. Hysterectomy Infectious Disease History: Denies: Traveled Outside the [place] in Last 30 Days - Family History Known Family History: Positive: Diabetes - Social History Alcohol Use: None Hx Substance Use: No Substance Use Type: Reports: None Hx Tobacco Use: Yes Smoking Status (MU): Former Smoker Review of Systems Positive: Vomiting - Hematemesis, Diarrhea - Black tarry stool, Nausea Positive: Weakness All Other Systems Reviewed And Are Negative: Yes Physical Exam - Summary Physical Exam Summary: Appearance: Well appearing, severe pain distress Skin: cold, dry, pale Head/face: blood on lips Eyes: EOMI, PRECIOUS, sclera pale ENT: mucous membranes pale Neck: supple, non-tender Respiratory: CTA, breath sounds present Cardiovascular: RRR, pulses symmetrical Abdomen: non-tender, soft, midline surgical scar, black tarry stool Bowel Sounds: present Musculoskeletal: normal, strength/ROM intact Neuro: normal, sensory motor intact, A&Ox3 Triage Information Reviewed: Yes Vital Signs Reviewed: Yes Procedures - Central Line Right Jugular Central Line Lumen: triple Central Line Position: internal jugular (R) - With US guidance Complications: none - Intubation Intubation Method: orotracheal Tube Size (cm): 7.5 Medications: Succinylcholine - and Ketamine Intubation Complications: no complications Post Intubation Xray: Yes - Placement confirmed Diagnostics - Laboratory Lab Results: Lab Results 02/19/18 02/19/18 Range/Units 07:45 07:45 WBC 22.9 H (3.5-10.8) 10^3/ul RBC 3.18 L (4.00-5.40) 10^6/ul Hgb 8.8 L (12.0-16.0) g/dl Hct 26 L (35-47) % MCV 83 (80-97) fL MCH 28 (27-31) pg MCHC 33 (31-36) g/dl RDW 14 (10.5-15) % Plt Count 494 H (150-450) 10^3/ul MPV 7.1 L (7.4-10.4) um3 Neut % (Auto) Pending Lymph % (Auto) Pending [place] % (Auto) Pending Eos % (Auto) Pending Baso % (Auto) Pending Absolute Neuts (auto) Pending Absolute Lymphs (auto) Pending Absolute Monos (auto) Pending Absolute Eos (auto) Pending Absolute Basos (auto) Pending Absolute Nucleated RBC Pending Nucleated RBC % Pending Blood Type Pending Antibody Screen Pending Result Diagrams: 02/19/18 12:30 02/19/18 07:45 Lab Statement: Any lab studies that have been ordered have been reviewed, and results considered in the medical decision making process. - Radiology CXR Radiology Interpretation Completed By: Radiologist - LINES AND TUBES ABOVE. NO ACTIVE CARDIOPULMONARY DISEASE. ED physician reviewed radiology report. - EKG 9:27 Cardiac Rate: NL - 93 bpm EKG Rhythm: Sinus Rhythm ST Segment: Normal Summary of EKG Findings: Nl axis, septal and lateral ST depressions GIGU Course/Dx - Course Course Of Treatment: Patient presents critically ill with massive upper GI hemorrhage with melena. Pt is hypotense with altered mental status. She was intubated emergently for airway protection and resuscitation. Massive transfusion protocol was initiated along with intravenous tranexamic acid. GI consultation was made and the ICU attending came to the ER. The patient stabilized here and had no further melena. Gross blood came out the OG tube. Vasopressors started. Admit to ICU with emergent GI procedure. - Diagnoses Provider Diagnoses: Upper gastrointestinal bleed, Hypovolemic shock - Physician Notifications Discussed Care Of Patient With: Wicho Edgar Time Discussed With Above Provider: 09:00 Instructed by Provider To: Admit As Inpatient - Critical Care Time Critical Care Time: 75-104 min - CCT is exclusive of separate billable procedures Discharge - Sign-Out/Discharge Documenting (check all that apply): Patient Departure - Admit - Discharge Plan Condition: Critical Disposition: ADMITTED TO [facility] - Billing Disposition and Condition Condition: CRITICAL Disposition: Admitted to [facility] - Attestation Statements Document Initiated by Scribe: Yes Documenting Scribe: Lindsey Newton Provider For Whom Brian is Documenting (Include Credential): Erasto Huynh MD Scribe Attestation: Lindsey Workman scribed for Erasto Huynh MD on 02/19/18 at 1731. Scribe Documentation Reviewed: Yes Provider Attestation: The documentation as recorded by the Lindsey rosas accurately reflects the service I personally performed and the decisions made by me, Erasto Huynh MD
[2018-02-19 08:07] LABS: INR 1.1 (0.77-1.02)
[2018-02-19 08:14] LABS: EGFR Non-African American 73.6 (>60)
--- NOTE | 2018-02-19 08:36 | RAD ---
HISTORY: intubation COMPARISONS: None VIEWS: 1: frontal AP view of the chest at 8:20 AM FINDINGS: LINES AND TUBES: An endotracheal tube is noted with the tip overlying the trachea between the clavicles and the gallo. A gastric tube is noted, with the tip in the left upper quadrant in a prepyloric position, just distal to the GE junction. A right internal jugular venous catheter is noted with the tip overlying the superior vena cava. CARDIOMEDIASTINAL SILHOUETTE: The cardiomediastinal silhouette is normal for portable technique. PLEURA: The costophrenic angles are sharp. No pleural abnormalities are noted. LUNG PARENCHYMA: The lungs are clear. ABDOMEN: The upper abdomen is clear. There is no subphrenic gas. BONES AND SOFT TISSUES: No bone or soft tissue abnormalities are noted. IMPRESSION: LINES AND TUBES ABOVE. NO ACTIVE CARDIOPULMONARY DISEASE.
[2018-02-19] MEDS ORDERED: Midazolam* 1 MG/ML 2 ML VIAL (2 MG) IV ONE (08:54)
[2018-02-19] MEDS ORDERED: Ondansetron INJ* 2 MG/ML VIAL ONE (08:56)
[2018-02-19] MEDS ORDERED: Midazolam* 1 MG/ML 2 ML VIAL (2 MG) ONE (08:56)
[2018-02-19] MEDS: Ondansetron INJ* 2 MG/ML VIAL IV PRN (09:00)
[2018-02-19 09:04] LABS: ABS Basophils 0.1 10^3/ul (0-0.2); ABS Eosinophils 0 10^3/ul (0-0.6); ABS Lymphocytes 3.3 10^3/ul (1.0-4.8); ABS Monocytes 1.8 10^3/ul (0-0.8); ABS Neutrophils 17.8 10^3/ul (1.5-7.7); ABS Nucleated RBC 0 10^3/ul; Eosinophil % 0.2 % (0-6); Lymphocyte % 14.2 % (25-47); Nucleated Red Blood Cells % 0.1
[2018-02-19] MEDS ORDERED: Pantoprazole IV* 40 MG IV STA (09:34)
--- NOTE | 2018-02-19 09:41 | HP ---
H&P (Free Text) History and Physical: History and Physical -- Critical Care Limitations in history/physical: yes; intubated, poor mental status HPI: 77y F w/pmhx of HTN, DM, HLD; comes to ER from home after waking at 3AM and not feeling well. She was vomiting blood as per her in ER. Unclear if any significant trauma. History obtained stated no anticoagulants taken. She was intubated in the ER for declining mental status and for airway protection due to ongoing upper GI bleeding of bright red blood/hematemesis. She was hypothermic 94.5, BP 90s, but last BP even recorded 40s. Started on massive transfusion protocol, started on levophed, central line placed. Currently on the 4th unit of prbc and reciving FFP also now. On sedation, family was in ER to see patient. GI consultation called by ER. ROS: limited ROS due to intubated state PMHx: HTN, DM, HLD PSHx: oophorectomy, hysterectomy Family History: DM Social History: Alcohol-none, Smoking-former, Drug use-no Allergies: Allergies Allergy/AdvReac Type Severity Reaction Status Date / Time No Known Allergies Allergy Verified 01/15/18 12:34 Home Medications: Aspirin TAB* [Aspirin 325 MG TAB*] 325 mg PO DAILY 01/15/18 [History Confirmed 01/15/18] Atenolol TAB* [Tenormin TAB* 50 MG] 75 mg PO DAILY 01/15/18 [History Confirmed 01/15/18] Cholecalciferol CAP/TAB(NF) [Vitamin D3 CAP/TAB (NF)] 5,000 unit PO DAILY [History Confirmed 01/15/18] Cranberry Fruit Extract [Cranberry] 200 mg PO DAILY 01/15/18 [History Confirmed 01/15/18] Cyanocobalamin TAB* [Vitamin B12 TAB*] 500 mcg PO DAILY 01/15/18 [History Confirmed 01/15/18] Sertraline* [Zoloft*] 100 mg PO BID 01/15/18 [History Confirmed 01/15/18] Triamcinolone 0.1% CREAM (NF) [Kenalog 0.1% Cream (NF)] 1 applic TOPICAL BID [History Confirmed 01/15/18] Ubidecarenone [Co Q10] 200 mg PO DAILY 01/15/18 [History Confirmed 01/15/18] amLODIPine TAB* [Norvasc 5 mg TAB*] 5 mg PO DAILY 01/15/18 [History Confirmed ] metFORMIN* [Glucophage 500 MG TAB *] 500 mg PO BID 01/15/18 [History Confirmed 01/15/18] Acetaminophen TAB* [Tylenol TAB*] 650 mg PO Q4H PRN 30 Days tab 01/18/18 [Rx] Sulfamethox/Trimethoprim DS* [Bactrim DS 800/160 TAB*] 1 tab PO BID #4 tab 01/18 [Rx] Oxycodone HCl/Acetaminophen [Percocet 2.5-325 mg (NF)] 1 tab PO Q8H PRN #10 tab MDD 3 01/20/18 [Rx] Tele: NSR Vitals: Vital Signs Temp 97.9 F 02/19/18 08:23 Pulse 92 02/19/18 08:23 Resp 14 02/19/18 08:22 BP 48/29 02/19/18 08:23 Pulse Ox 100 02/19/18 08:23 Intake & Output 02/18/18 02/19/18 02/19/18 18:59 06:59 18:59 Weight 65.317 kg O2/Vent: 14/450/+5/40% Infusions: NS, PRBC, propofol 30, levophed Current Medications: Heparin Sodium (Porcine) (Heparin Flush Picc/Ml/Cvc(*)) 0 ml FLUSH 0600,1800 DINA; Protocol Pantoprazole Sodium (Protonix Iv Bag*) 80 mg in 250 mls @ 25 mls/hr IVPB Q10H DINA Sodium Chloride (Ns 0.9% 1000 Ml*) 1,000 mls @ 100 mls/hr IV PER RATE DINA Norepinephrine Bitartrate (Levophed 16 Mcg/Ml Premix Bag*) 4,000 mcg in 250 mls @ 18.75 mls/hr IV .INITIAL RATE DINA; Protocol Propofol (Diprivan*) 100 mls @ 7.838 mls/hr IV .(Initial Rate) DINA; Protocol Insulin Aspart (Novolog (Nf)) 0 unit SUBCUT .enter frequency DINA; Protocol Ondansetron HCl (Zofran Inj*) 4 mg IV Q4H PRN PRN Reason: NAUSEA/VOMITING Last Admin: 02/19/18 09:00 Dose: 4 mg Pantoprazole Sodium (Protonix Iv*) 80 mg IV ONCE STA Stop: 02/19/18 09:35 Physical Exam: General: intubated, sedated, moving spontaneously Head: normocephalic, atraumatic HEENT: + pallor, no icterus, dry mucous membranes Neck: soft, supple, no jvd CVS: normal rate, regular, no murmur Resp: bilateral air entry, no rhales, no wheeze, no rhonchi, no acc muscle use Abdomen: soft, nontender, nondistended, bowel sounds present Ext: pulses+, cool, no edema Skin: intact Neuro: intubated, sedated, moving spontaneously Labs: Laboratory Results - last 24 hr 02/19/18 02/19/18 02/19/18 07:45 07:45 07:45 WBC 22.9 H RBC 3.18 L Hgb 8.8 L Hct 26 L MCV 83 MCH 28 MCHC 33 RDW 14 Plt Count 494 H MPV 7.1 L Neut % (Auto) 77.5 Lymph % (Auto) 14.2 L [place] % (Auto) 7.6 H Eos % (Auto) 0.2 Baso % (Auto) 0.5 Absolute Neuts (auto) 17.8 H Absolute Lymphs (auto) 3.3 Absolute Monos (auto) 1.8 H Absolute Eos (auto) 0 Absolute Basos (auto) 0.1 Absolute Nucleated RBC 0 Nucleated RBC % 0.1 INR (Anticoag Therapy) 1.10 H APTT 24.9 L Sodium 130 L Potassium 4.0 Chloride 97 L Carbon Dioxide 22 Anion Gap 11 BUN 62 H Creatinine 0.76 Est GFR ( Amer) 89.1 Est GFR (Non-Af Amer) 73.6 BUN/Creatinine Ratio 81.6 H Glucose 224 H Calcium 9.0 Total Bilirubin 0.30 AST 10 L ALT 10 Alkaline Phosphatase 190 H Total Protein 5.4 L Albumin 3.0 L Globulin 2.4 Albumin/Globulin Ratio 1.3 Blood Type Antibody Screen Crossmatch 02/19/18 07:45 WBC RBC Hgb Hct MCV MCH MCHC RDW Plt Count MPV Neut % (Auto) Lymph % (Auto) [place] % (Auto) Eos % (Auto) Baso % (Auto) Absolute Neuts (auto) Absolute Lymphs (auto) Absolute Monos (auto) Absolute Eos (auto) Absolute Basos (auto) Absolute Nucleated RBC Nucleated RBC % INR (Anticoag Therapy) APTT Sodium Potassium Chloride Carbon Dioxide Anion Gap BUN Creatinine Est GFR ( Amer) Est GFR (Non-Af Amer) BUN/Creatinine Ratio Glucose Calcium Total Bilirubin AST ALT Alkaline Phosphatase Total Protein Albumin Globulin Albumin/Globulin Ratio Blood Type O Negative Antibody Screen Negative Crossmatch See Detail Imaging: cxr 02/19 - ett above gallo, no focal infiltrate noted Assessment: 77y F w/pmhx of HTN, DM, HLD; comes to ER from home after waking at 3AM and not feeling well. She was vomiting blood as per her in ER. Unclear if any significant trauma. History obtained stated no anticoagulants taken. She was intubated in the ER for declining mental status and for airway protection due to ongoing upper GI bleeding of bright red blood/hematemesis. Started on pressors, massive transfusion protocol. -Upper GI hemorrhage -Hypovolemic Shock -Encephalopathy -Acute Respiratory Failure, unspecified DM HTN Plan: Neuro- cont propofol; raas -2 to -3. daily sedation vacation. delirium prec. CVS- shock, on levophed, NS infusion/bolus, PRBC/FFP. transfuse to keep hg>7. monitor urine output. no further antiplatelets/anticoag. hg q6h. keep MAP>65, sbp >90. emergent art line placed by me. Resp- intubated for airway protection. cxr without infiltrate. no secretions. abg at noon. on 40%. maintain intubated status for now, planned EGD today. ID- afebrile. wbc 22. likely reactive. check urinalysis. cxr clear. hold abx for now. GI- suspected UGI hemorrhage. NPO. NGT low intermittent suction. GI consult, plan for EGD today. PPI infusion. Transfuse as needed. no antiplatelets/ anticoag. trend hg q6h. Renal- Cr okay. monitor urine output. hernandez placed. Heme- hg 8.8, check hg at noon. s/p massive transfusion protocol. not on AC at home. for plt and ffp also to be transfused. Endo- fingerstick q6h, slidign scale insulin. Musculsk- pressure ulcer prophylaxis. Bedrest. Wounds- none Nutrition- NPO DVT prophylaxis: SCDs GI prophylaxis: PPI Central Line: RIJ 02/19 Arterial Line: Left fem 02/19 Hernandez Cathetor: yes Disposition: admit to ICU; expected length of stay >2 midnight Code Status: full code Total Critical Care time is 50 minutes, excluding procedures/teaching Wicho Edgar MD Mold Cooler (Electronically Signed)
--- NOTE | 2018-02-19 09:51 | PN ---
Progress Note - Progress Note Date of Service: 02/19/18 Note: Arterial Line Procedure Note Indication: frequent arterial blood gases , invasive hemodynamic monitoring Diagnosis: GI hemorrhage, hypovolemic shock, respiratory failure Performed by: Wicho Edgar MD Consent: Emergent Brooks Protocol: Time-out was performed and the correct patient and site were verified - Prior labs/history was reviewed prior to procedure - Full sterile precautions with chlorhexidine/full drapes/gowns/gloves utilized - left femoral artery visualized with US - Vessel accessed with return of pulsatile blood. One attempt was made to access vessel. A cathetor was threaded over wire into vessel. Good arterial waveform was observed on monitor. - Arterial Catheter was sutured to site; dressing applied to site. EBL <10 cc No immediate complications noted, patient tolerated procedure well. Wicho Edgar MD End Worker (Electronically Signed)
[2018-02-19] MEDS ORDERED: Insulin LISPRO* 1 UNITS UNIT SUBCUT SCH (10:00)
[2018-02-19] MEDS ORDERED: Norepinephrine 16MCG/ML IVPRE* 4,000 MCG/250 ML BAG IV SCH (10:00)
[2018-02-19] MEDS: NS 0.9% 1000 ML* 1,000 ML IV SCH (10:17)
[2018-02-19] MEDS: Propofol* 100 ML IV SCH ×4 (10:24→21:22)
[2018-02-19] MEDS: Pantoprazole* 80 mg IN NS 80 MG/250 ML BAG IVPB SCH ×2 (10:28→20:50)
[2018-02-19] MEDS ORDERED: Midazolam* 1 MG/ML 10 ML VIAL (10 MG) ONE (10:37)
[2018-02-19] MEDS ORDERED: fentaNYL* 50 MCG/ML 2 ML VIAL (100 MCG VIAL) ONE (10:37)
--- NOTE | 2018-02-19 12:40 | PN ---
Progress Note - Progress Note Date of Service: 02/19/18 Note: patient with fall and fracture recently; has been on Aleve (nsaid) for pain control s/p EGD; large smaller curvature ulcer, actively bleeding, clot+ injected, cautery attempted also. bleeding has slowed will monitor h/h coming off levophed Surg and IR consult if rebleeding occurs. TO keep intubated today Wicho Edgar
[2018-02-19 12:49] LABS: Mean Platelet Volume 7.1 um3 (7.4-10.4); Platelet Count 222 10^3/ul (150-450)
[2018-02-19 13:19] LABS: Hematocrit 21 % (35-47); Hemoglobin 7.3 g/dl (12.0-16.0)
[2018-02-19] MEDS ORDERED: Calcium Gluconate INJ* 2 GM in NS 0.9% 100 ML* 100 ML IV ONE (14:27)
[2018-02-19] MEDS ORDERED: fentaNYL PCA* 20 ML PCA SCH (16:00)
[2018-02-19] MEDS ORDERED: HYDROmorphone INJ1* 1 MG/ML SYRINGE IV SLOW PU ONE (17:50)
[2018-02-19 18:44] LABS: Hematocrit 26 % (35-47)
--- NOTE | 2018-02-19 23:13 | PRO ---
DATE: 02/19/18 - ROOM #ICU-03 REFERRING PHYSICIANS: Shane Bhandari; Wicho Edgar* PROCEDURE: Upper gastrointestinal endoscopy and epinephrine injection to lesser curvature high gastric ulcer with BiCap hemostasis following. INDICATION: This 77-year-old woman developed weakness at home and hematemesis. She passed some black stool. She came to the emergency room and had an abnormal mental status. She was intubated and taken to the intensive care unit. She had more melena. In the ICU, she was intubated on a propofol drip and Levophed drip with pulse about 100, blood pressure about 105 systolic. Her respiratory status seems stable. She has received 4 units of blood, 4 units of FFP. Her initial hemoglobin was 8.8, down from the mid 13s and INR approximately 1, platelets 470. Discussion was held with extended family including her long-term domestic partner and sister about the goals of gastroscopy and possible backup of surgery versus radiologic intervention. ENDOSCOPIST: Dr. Gibbons. MEDICATIONS: Initially propofol in the ICU and supplemented by 3 mg of Versed under Dr Gibbons's direction FINDINGS: She is intubated in the ICU on a Levophed drip. She was rolled to her left side and supplementary Versed given in intervals during the procedure 1 mg each time. This seemed to settle her down. EGD: Larynx - intubated, symmetric. Esophagus - easily entered and there is fresh blood periodically. The scope slid along the NG tube. There was no intrinsic esophageal abnormality. Stomach - large amount of clot in the gastric fundus. Much of it appeared quite fresh. A spurting vessel could not be identified. The stomach was distended and in a retroflex view, the lesser curvature had a large 3 to 4 cm ulcer with a deep black crater. There was some red hallie over on one side, but it was not actively bleeding. A relook a few minutes later showed that there was pulsatile bleeding from the 8 to 9 o'clock edge as defined by the orientation in retroflexion. Before therapeutic endoscopy, the rest of the stomach and duodenum was surveyed. The antrum appeared normal. Duodenum - the pylorus, bulb and second through fourth portions appeared normal without any ulcers or fresh blood. The scope was brought back into the gastric fundus. A large amount of lavage was done. A suction trap was filled to 1100 cc and then 300 on a second suction trap. After removing much clot from the stomach the ulcer was bleeding and it appeared that with repetitive clogging of all the instruments limitation of benefit was being reached. The edge that was bleeding was injected with epinephrine 1:10,000 1 cc and this did result in cessation of bleeding promptly and pallor of the gastric wall and a well defined area about 4 cm out from the ulcer. There was no further bleeding. Lavage was done and there was still no further bleeding. A BiCap probe at 20 richard was then inserted and somewhat empirically used 4 times around the estimated source of bleeding to create coagulation. No bleeding was induced. Procedure was terminated. IMPRESSION: 1. Dominant gastric ulcer high lesser curvature. 2. Other small ulcers, proximal gastric body without stigmata of bleeding. 3. Massive GI bleeding - 98% likely to be entirely from the ulcer visualized. If there is rebleeding, consideration of Interventional Radiology versus surgery will be needed. [id number] #: [id number] [id number]
[2018-02-19 23:41] LABS: Hematocrit 23 % (35-47); Hemoglobin 7.9 g/dl (12.0-16.0)
[2018-02-20] MEDS: Chlorhexidine MOUTHWASH 0.12%* 15 ML UDC TOPICAL SCH ×6 (01:58→22:45)
[2018-02-20 05:44] LABS: Hematocrit 25 % (35-47); Hemoglobin 8.6 g/dl (12.0-16.0); Mean Corpuscular HGB Conc 34 g/dl (31-36); Mean Corpuscular Hemoglobin 29 pg (27-31); Mean Corpuscular Volume 85 fL (80-97); Mean Platelet Volume 7.2 um3 (7.4-10.4); Platelet Count 166 10^3/ul (150-450); Red Blood Count 2.95 10^6/ul (4.00-5.40); Red Cell Distribution Width 15 % (10.5-15); White Blood Count 12.6 10^3/ul (3.5-10.8)
[2018-02-20 05:50] LABS: INR 1.02 (0.77-1.02)
[2018-02-20] MEDS: Pantoprazole* 80 mg IN NS 80 MG/250 ML BAG IVPB SCH ×2 (06:12→15:55)
[2018-02-20 06:20] LABS: EGFR Non-African American 109.2 (>60)
[2018-02-20] MEDS: Propofol* 100 ML IV SCH ×4 (06:58→18:44)
[2018-02-20] MEDS ORDERED: Magnesium Sulfate IV* 2 GM in NS 0.9% 100 ML* 100 ML IV ONE (09:10)
[2018-02-20] MEDS: Metoprolol Tartrate IV* 1 MG/ML 5 ML VIAL IV PRN (09:35)
--- NOTE | 2018-02-20 09:50 | PN ---
Progress Note - Progress Note Date of Service: 02/20/18 Note: Progress Note -- Critical Care 24 hour events: -noted events yesterday -1 more PRBC yesterday evening -s/p EGD with large lesser curvature ulcer; s/p epi and cautery, clot+ -no further drop in h/h or PRBC overnight; NGT with old blood but no further suctioned -on vent now; awakens on light sedation, follows commands; states pain+, on fentanyl infusion -family at bedside -tmax 99; no secretions from ett -off pressors, on ppi gtt, IVF Tele: sinus tachy Vitals: Vital Signs Temp 99.1 F 02/20/18 09:25 Pulse 123 02/20/18 09:25 Resp 17 02/20/18 08:00 BP 109/65 02/20/18 09:25 Pulse Ox 97 02/20/18 09:25 Intake & Output 02/19/18 02/20/18 02/20/18 18:59 06:59 18:59 Intake Total 759 2383 Output Total 560 630 120 Balance 199 1753 -120 Weight 70 kg 74.6 kg Intake: IV Fluids 458 1725 NS (0.9%) 458 1725 Medicated IV 301 658 CC - Norepinephrine/ 53 Levophed CC - Propofol/Diprivan 136 301 GEN - Pantoprazole/ 112 357 Protonix Oral 0 Output: G Tube 115 Hernandez 445 630 120 O2/Vent: 14/450/+5/40% Infusions: NS, propofol 30, fentanyl, protonix gtt Current Medications: Chlorhexidine Gluconate (Peridex Mouth Wash 0.12%*) 15 ml TOPICAL [id number] AWAKE [facility] Last Admin: 02/20/18 08:43 Dose: 15 ml Fentanyl Citrate (Fentanyl*) 25 mcg IV ONCE ONE Stop: 02/20/18 10:01 Last Admin: 02/20/18 09:36 Dose: Not Given Heparin Sodium (Porcine) (Heparin Flush Picc/Ml/Cvc(*)) 0 ml FLUSH 0600,1800 [facility]; Protocol Last Admin: 02/20/18 05:35 Dose: 2 ml Hydralazine HCl (Apresoline Iv*) 5 mg IV SLOW PU Q2H PRN PRN Reason: for SBP>160 Pantoprazole Sodium (Protonix Iv Bag*) 80 mg in 250 mls @ 25 mls/hr IVPB Q10H [facility] Last Admin: 02/20/18 06:12 Dose: 25 mls/hr Sodium Chloride (Ns 0.9% 1000 Ml*) 1,000 mls @ 100 mls/hr IV PER RATE [facility] Last Admin: 02/19/18 10:17 Dose: 100 mls/hr Norepinephrine Bitartrate (Levophed 16 Mcg/Ml Premix Bag*) 4,000 mcg in 250 mls @ 18.75 mls/hr IV .INITIAL RATE [facility]; Protocol Last Admin: 02/19/18 10:24 Dose: 18.75 mls/hr Propofol (Diprivan*) 100 mls @ 7.838 mls/hr IV .(Initial Rate) [facility]; Protocol Last Admin: 02/20/18 06:58 Dose: 7.838 mls/hr Fentanyl Citrate (Fentanyl Nut Sheller Machine Operator*) 20 mls @ 0.25 mls/hr 3D DESIGNER .change Q24H [facility]; Protocol Last Admin: 02/19/18 15:34 Dose: 0.25 mls/hr Magnesium Sulfate (Magnesium Sulfate 2 Gm Iv*) 2 gm in 50 mls @ 50 mls/hr IVPB ONCE ONE Stop: 02/20/18 10:59 Last Admin: 02/20/18 09:35 Dose: 50 mls/hr Insulin Human Lispro (Humalog*) 0 units SUBCUT .SLIDING SCALE [facility]; Protocol Metoprolol Tartrate (Lopressor Iv*) 5 mg IV Q6H PRN PRN Reason: for SBP>160 and HR>90 Last Admin: 02/20/18 09:35 Dose: 5 mg Ondansetron HCl (Zofran Inj*) 4 mg IV Q4H PRN PRN Reason: NAUSEA/VOMITING Last Admin: 02/19/18 09:00 Dose: 4 mg Physical Exam: General: intubated, awake, follows commands, some distress from pain, moving spontaneously Head: normocephalic, atraumatic HEENT: + pallor, no icterus, moist mucous membranes Neck: soft, supple, no jvd CVS: tachy, regular, no murmur Resp: bilateral air entry, no rhales, no wheeze, no rhonchi, no acc muscle use Abdomen: soft, nontender, nondistended, bowel sounds present Ext: pulses+, warm, no edema Skin: intact Neuro: intubated, awake, follows commands, moves ext to command, pupils reactive Labs: Laboratory Results - last 24 hr 02/19/18 02/19/18 02/19/18 07:45 10:25 12:10 WBC RBC Hgb Hct MCV MCH MCHC RDW Plt Count MPV INR (Anticoag Therapy) Fibrinogen 309.7 Patient Temperature ABG pH ABG pH (Temp Correct) ABG pCO2 ABG pCO2 (Temp Corrct ABG pO2 ABG pO2 (Temp Correct ABG HCO3 ABG O2 Saturation ABG Base Excess Respiration Rate O2 Delivery Device Ventilator Type Vent Mode FiO2 Inspiratory Time PEEP Pressure Support Pressure Control EPAP IPAP BiPAP Sodium Potassium Chloride Carbon Dioxide Anion Gap BUN Creatinine Est GFR ( Amer) Est GFR (Non-Af Amer) BUN/Creatinine Ratio Glucose POC Glucose (mg/dL) 216 H Lactic Acid Calcium Ionized Calcium Magnesium Total Bilirubin Direct Bilirubin Indirect Bilirubin AST ALT Alkaline Phosphatase Total Creatine Kinase Total Protein Albumin Globulin Albumin/Globulin Ratio Blood Type O Negative Antibody Screen Negative Crossmatch See Detail 02/19/18 02/19/18 02/19/18 12:30 13:47 13:47 WBC RBC Hgb 7.3 L Hct 21 L MCV MCH MCHC RDW Plt Count 222 MPV 7.1 L INR (Anticoag Therapy) Fibrinogen Patient Temperature ABG pH 7.45 ABG pH (Temp Correct) ABG pCO2 33 L ABG pCO2 (Temp Corrct ABG pO2 187 H ABG pO2 (Temp Correct ABG HCO3 24.3 ABG O2 Saturation 100.2 H ABG Base Excess -0.9 Respiration Rate O2 Delivery Device Ventilator Type Vent Mode FiO2 Inspiratory Time PEEP Pressure Support Pressure Control EPAP IPAP BiPAP Sodium Potassium Chloride Carbon Dioxide Anion Gap BUN Creatinine Est GFR ( Amer) Est GFR (Non-Af Amer) BUN/Creatinine Ratio Glucose POC Glucose (mg/dL) Lactic Acid 1.7 Calcium Ionized Calcium Magnesium Total Bilirubin Direct Bilirubin Indirect Bilirubin AST ALT Alkaline Phosphatase Total Creatine Kinase Total Protein Albumin Globulin Albumin/Globulin Ratio Blood Type Antibody Screen Crossmatch 02/19/18 02/19/18 02/19/18 18:19 18:29 18:29 WBC RBC Hgb 9.0 L Hct 26 L MCV MCH MCHC RDW Plt Count MPV INR (Anticoag Therapy) Fibrinogen Patient Temperature ABG pH ABG pH (Temp Correct) ABG pCO2 ABG pCO2 (Temp Corrct ABG pO2 ABG pO2 (Temp Correct ABG HCO3 ABG O2 Saturation ABG Base Excess Respiration Rate O2 Delivery Device Ventilator Type Vent Mode FiO2 Inspiratory Time PEEP Pressure Support Pressure Control EPAP IPAP BiPAP Sodium Potassium Chloride Carbon Dioxide Anion Gap BUN Creatinine Est GFR ( Amer) Est GFR (Non-Af Amer) BUN/Creatinine Ratio Glucose POC Glucose (mg/dL) 133 H Lactic Acid Calcium Ionized Calcium 4.76 Magnesium Total Bilirubin Direct Bilirubin Indirect Bilirubin AST ALT Alkaline Phosphatase Total Creatine Kinase Total Protein Albumin Globulin Albumin/Globulin Ratio Blood Type Antibody Screen Crossmatch 02/19/18 02/19/18 02/20/18 23:36 23:40 05:29 WBC RBC Hgb 7.9 L Hct 23 L MCV MCH MCHC RDW Plt Count MPV INR (Anticoag Therapy) Fibrinogen Patient Temperature ABG pH ABG pH (Temp Correct) ABG pCO2 ABG pCO2 (Temp Corrct ABG pO2 ABG pO2 (Temp Correct ABG HCO3 ABG O2 Saturation ABG Base Excess Respiration Rate O2 Delivery Device Ventilator Type Vent Mode FiO2 Inspiratory Time PEEP Pressure Support Pressure Control EPAP IPAP BiPAP Sodium Potassium Chloride Carbon Dioxide Anion Gap BUN Creatinine Est GFR ( Amer) Est GFR (Non-Af Amer) BUN/Creatinine Ratio Glucose POC Glucose (mg/dL) 129 H 138 H Lactic Acid Calcium Ionized Calcium Magnesium Total Bilirubin Direct Bilirubin Indirect Bilirubin AST ALT Alkaline Phosphatase Total Creatine Kinase Total Protein Albumin Globulin Albumin/Globulin Ratio Blood Type Antibody Screen Crossmatch 02/20/18 02/20/18 02/20/18 05:30 05:30 05:30 WBC 12.6 H RBC 2.95 L Hgb 8.6 L Hct 25 L MCV 85 MCH 29 MCHC 34 RDW 15 Plt Count 166 MPV 7.2 L INR (Anticoag Therapy) 1.02 Fibrinogen Patient Temperature ABG pH ABG pH (Temp Correct) ABG pCO2 ABG pCO2 (Temp Corrct ABG pO2 ABG pO2 (Temp Correct ABG HCO3 ABG O2 Saturation ABG Base Excess Respiration Rate O2 Delivery Device Ventilator Type Vent Mode FiO2 Inspiratory Time PEEP Pressure Support Pressure Control EPAP IPAP BiPAP Sodium 135 Potassium 3.9 Chloride 108 Carbon Dioxide 23 Anion Gap 4 BUN 42 H Creatinine 0.54 Est GFR ( Amer) 132.1 Est GFR (Non-Af Amer) 109.2 BUN/Creatinine Ratio 77.8 H Glucose 130 H POC Glucose (mg/dL) Lactic Acid Calcium 7.7 L Ionized Calcium Magnesium 1.4 L Total Bilirubin 0.50 Direct Bilirubin 0.10 Indirect Bilirubin 0.4 AST 10 L ALT 8 Alkaline Phosphatase 105 H Total Creatine Kinase 36 Total Protein 4.4 L Albumin 2.4 L Globulin 2.0 Albumin/Globulin Ratio 1.2 Blood Type Antibody Screen Crossmatch 02/20/18 05:50 WBC RBC Hgb Hct MCV MCH MCHC RDW Plt Count MPV INR (Anticoag Therapy) Fibrinogen Patient Temperature 37.4 ABG pH 7.41 ABG pH (Temp Correct) Not Reportable ABG pCO2 34 L ABG pCO2 (Temp Corrct Not Reportable ABG pO2 101 H ABG pO2 (Temp Correct Not Reportable ABG HCO3 22.9 ABG O2 Saturation 99.5 H ABG Base Excess -2.6 L Respiration Rate Not Reportable O2 Delivery Device Mechanical ventilator Ventilator Type Not Reportable Vent Mode Not Reportable FiO2 Not Reportable Inspiratory Time Not Reportable PEEP Not Reportable Pressure Support Not Reportable Pressure Control Not Reportable EPAP Not Reportable IPAP Not Reportable BiPAP Not Reportable Sodium Potassium Chloride Carbon Dioxide Anion Gap BUN Creatinine Est GFR ( Amer) Est GFR (Non-Af Amer) BUN/Creatinine Ratio Glucose POC Glucose (mg/dL) Lactic Acid Calcium Ionized Calcium Magnesium Total Bilirubin Direct Bilirubin Indirect Bilirubin AST ALT Alkaline Phosphatase Total Creatine Kinase Total Protein Albumin Globulin Albumin/Globulin Ratio Blood Type Antibody Screen Crossmatch Imaging: cxr 02/19 - ett above gallo, no focal infiltrate noted Assessment: 77y F w/pmhx of HTN, DM, HLD; comes to ER from home after waking at 3AM and not feeling well. She was vomiting blood as per her in ER. Unclear if any significant trauma. History obtained stated no anticoagulants taken. She was intubated in the ER for declining mental status and for airway protection due to ongoing upper GI bleeding of bright red blood/hematemesis. Started on pressors, massive transfusion protocol. -Upper GI hemorrhage 2/2 to large lesser curvature gastric ulcer 2/2 to NSAID use -Hypovolemic Shock, resolved -acute blood loss anemia -Encephalopathy, resolved -Acute Respiratory Failure, unspecified DM HTN Plan: Neuro- hold propofol for vent weaning; cont fentanyl for pain. daily sedation vacation. delirium prec. CVS- Shock resolved, off pressors. cotn NS infusion, dec to 50cc/hr. hg stable 8 -9s. tranfuse to keep hg>7. holding antiplatelets/nsaids. monitor urine output. check hg q12h. keep MAP>65, sbp >90. Metoprolol and Hydralazine IV for HTN. Resp- intubated for airway protection. wean sedation. no secretions noted. plan for cpap and extubation today. no further active bleeding noted, should be able to tolerate extubation. VAP bundle. ID- afebrile. wbc mar to 12, likely was reactive leukocytosis from bleeding yesterday. no abx indicated. GI- s/p EGD 02/19, large gastric ulcer, s/p epi/cautery. NGT output minimal/ none. hg stable. cont PPI infusion. GI followup. no further NSAIDS. NPO. Trend h /h q12h. Renal- Cr okay. monitor urine output. heranndez placed. Heme- hg 8-9, stable. check hg q12h. INR normal, Plt 200s. Transfuse to keep hg >7. Endo- fingerstick q6h, slidign scale insulin. Musculsk- pressure ulcer prophylaxis. Bedrest. Wounds- none Nutrition- NPO DVT prophylaxis: SCDs GI prophylaxis: PPI Central Line: RIJ 02/19 Arterial Line: Left fem 02/19 Hernandez Cathetor: yes Disposition: ICU Code Status: full code Total Critical Care time is 35 minutes, excluding procedures/teaching Wicho Edgar MD Support Dba (Electronically Signed)
[2018-02-20] MEDS ORDERED: fentaNYL* 50 MCG/ML 2 ML VIAL (100 MCG VIAL) IV ONE (10:00)
[2018-02-20] MEDS ORDERED: Magnesium Sulfate 2 GM IV* 2 GM/50 ML BAG IVPB ONE (10:00)
[2018-02-20 10:57] LABS: Hematocrit 27 % (35-47); Hemoglobin 9.2 g/dl (12.0-16.0)
[2018-02-20] MEDS ORDERED: EPINEPHrine SYR 0.1MG/ML* SYRINGE ONE (14:01)
[2018-02-20 16:11] LABS: Hematocrit 24 % (35-47); Hemoglobin 8.4 g/dl (12.0-16.0)
[2018-02-20] MEDS: NS 0.9% 1000 ML* 1,000 ML IV SCH (17:19)
--- NOTE | 2018-02-20 17:56 | PN ---
Progress Note - Progress Note Date of Service: 02/20/18 Note: BRIEF GASTROENTEROLOGY NOTE Discussed case with ICU attending, Dr Edgar, this afternoon. Reviewed chart. Patient underwent EGD yesterday with injection of epi and bicap to large lesser curvature ulcer. Patient sleeping at time of evening rounds. No family in room. AM NG lavage with ~ 100 cc of blood. Hct noted to have trended up (23 > 25) after additional blood product given. Repeat NG lavage several hours later without active bleeding. Patient remains tachy but stable and off pressors. Several episodes of melena throughout the day, which is not unexpected given massive GI bleed yesterday. - Continue IV PPI gtt - Continue to monitor CBC every 8 hours and transfuse per ICU team - NG tube to gravity - Will not plan for repeat endoscopic evaluation given clinical stability (off pressors, tachycardia unchanged) and Hct response to transfusion. If significant rebleeding ocurs, then would strongly consider transfer to facility where IR is available to attempt embolization to vessel feeding large ulcer. Valerie Aldrich MD Gastroenterology Fellow
[2018-02-20] MEDS: fentaNYL PCA* 20 ML PCA SCH (20:36)
[2018-02-20 23:14] LABS: Hematocrit 23 % (35-47)
[2018-02-21] MEDS: Pantoprazole* 80 mg IN NS 80 MG/250 ML BAG IVPB SCH ×3 (02:10→22:46)
[2018-02-21] MEDS: HYDROmorphone INJ1* 1 MG/ML SYRINGE IV SLOW PU PRN ×6 (02:52→19:43)
[2018-02-21 05:25] LABS: Hematocrit 23 % (35-47); Hemoglobin 7.8 g/dl (12.0-16.0); Mean Corpuscular HGB Conc 34 g/dl (31-36); Mean Corpuscular Hemoglobin 29 pg (27-31); Mean Corpuscular Volume 86 fL (80-97); Mean Platelet Volume 7.2 um3 (7.4-10.4); Platelet Count 166 10^3/ul (150-450); Red Blood Count 2.69 10^6/ul (4.00-5.40); Red Cell Distribution Width 16 % (10.5-15); White Blood Count 9.7 10^3/ul (3.5-10.8)
[2018-02-21 05:29] LABS: INR 0.98 (0.77-1.02)
[2018-02-21 05:37] LABS: EGFR Non-African American 128.2 (>60)
[2018-02-21] MEDS: Chlorhexidine MOUTHWASH 0.12%* 15 ML UDC TOPICAL SCH ×3 (07:07→15:09)
[2018-02-21] MEDS: Propofol* 100 ML IV SCH ×3 (07:24→15:42)
[2018-02-21] MEDS: KCL 20 MEQ/100 ML IVPREMIX* 20 MEQ/100 ML BAG IV SCH ×2 (11:28→13:42)
[2018-02-21] MEDS ORDERED: Magnesium Sulfate 2 GM IV* 2 GM/50 ML BAG IVPB ONE ×2 (11:30→20:39)
[2018-02-21 13:01] LABS: Hematocrit 23 % (35-47); Hemoglobin 7.7 g/dl (12.0-16.0)
[2018-02-21] MEDS ORDERED: Midazolam* 1 MG/ML 10 ML VIAL (10 MG) ONE (13:38)
[2018-02-21] MEDS: fentaNYL PCA* 20 ML PCA SCH (13:44)
--- NOTE | 2018-02-21 14:26 | PN ---
Progress Note - Progress Note Date of Service: 02/21/18 Note: Progress Note -- Critical Care 24 hour events: -remains on vent -no overnight events -sedated on propofol/fent ovneright; PPI gtt runnning -ogt was clamped; this morning we flushed with 50-70cc NS, pulled back and only saline returned, no blood noted -no sig bowel movements overnight -hemodyn stable; no pressors; HR and BP stable -increased fentanyl and given additional dilaudid for pain Tele: sinus tachy at times Vitals: Vital Signs Temp 99.1 F 02/21/18 14:01 Pulse 108 02/21/18 14:01 Resp 14 02/21/18 13:44 BP 110/52 02/21/18 14:01 Pulse Ox 98 02/21/18 14:01 Intake & Output 02/20/18 02/21/18 02/21/18 18:59 06:59 18:59 Intake Total 1140 2746 Output Total 1260 680 502 Balance -120 2066 -502 Weight 76.7 kg Intake: IV Fluids 752 2038 NS (0.9%) 752 2038 Medicated IV 388 708 CC - Propofol/Diprivan 182 318 GEN - Pantoprazole/ 206 390 Protonix Oral 0 Output: G Tube 100 Urine 0 Hernandez 1060 680 502 Liquid Stool 100 Other: Date of Last Bowel 02/20/18 Movement # Bowel Movements 1 Estimated Stool Amount Large O2/Vent: 14/450/+5/40% Infusions: NS, propofol , fentanyl 50, protonix gtt Current Medications: Chlorhexidine Gluconate (Peridex Mouth Wash 0.12%*) 15 ml TOPICAL [id number] AWAKE [facility] Last Admin: 02/21/18 11:13 Dose: 15 ml Heparin Sodium (Porcine) (Heparin Flush Picc/Ml/Cvc(*)) 0 ml FLUSH 0600,1800 [facility]; Protocol Last Admin: 02/21/18 07:07 Dose: Not Given Hydralazine HCl (Apresoline Iv*) 5 mg IV SLOW PU Q2H PRN PRN Reason: for SBP>160 Hydromorphone HCl (Dilaudid Inj1s*) 1 mg IV SLOW PU Q4H PRN PRN Reason: PAIN Last Admin: 02/21/18 13:07 Dose: 1 mg Pantoprazole Sodium (Protonix Iv Bag*) 80 mg in 250 mls @ 25 mls/hr IVPB Q10H [facility] Last Admin: 02/21/18 12:40 Dose: 25 mls/hr Propofol (Diprivan*) 100 mls @ 7.838 mls/hr IV .(Initial Rate) [facility]; Protocol Last Admin: 02/21/18 11:18 Dose: 7.838 mls/hr Fentanyl Citrate (Fentanyl Curing Bin Operator*) 20 mls @ 1 mls/hr PATIENT ACCOUNTS CLERK .change Q24H [facility]; Protocol Last Admin: 02/21/18 13:44 Dose: 1 mls/hr Lactated Ringer's (Lactated Ringers 1000 Ml Bag*) 1,000 mls @ 50 mls/hr IV PER RATE [facility] Last Admin: 02/21/18 11:10 Dose: 50 mls/hr Potassium Chloride (Potassium Chloride 20 Meq/100 Ml Ivpremix*) 20 meq in 100 mls @ 50 mls/hr IV Q2H [facility] Stop: 02/21/18 15:59 Last Admin: 02/21/18 13:42 Dose: 50 mls/hr Insulin Human Lispro (Humalog*) 0 units SUBCUT .SLIDING SCALE [facility]; Protocol Metoprolol Tartrate (Lopressor Iv*) 5 mg IV Q6H PRN PRN Reason: for SBP>160 and HR>90 Last Admin: 02/20/18 09:35 Dose: 5 mg Ondansetron HCl (Zofran Inj*) 4 mg IV Q4H PRN PRN Reason: NAUSEA/VOMITING Last Admin: 02/19/18 09:00 Dose: 4 mg Physical Exam: General: intubated, awake, follows commands, some distress from pain at times, moving spontaneously Head: normocephalic, atraumatic HEENT: + pallor, no icterus, moist mucous membranes Neck: soft, supple, no jvd CVS: tachy, regular, no murmur Resp: bilateral air entry, no rhales, no wheeze, no rhonchi, no acc muscle use Abdomen: soft, nontender, nondistended, bowel sounds present Ext: pulses+, warm, no edema Skin: intact Neuro: intubated, awake, follows commands, moves ext to command, pupils reactive Labs: Laboratory Results - last 24 hr 02/20/18 02/20/18 02/20/18 15:58 17:49 22:57 WBC RBC Hgb 8.4 L 8.0 L Hct 24 L 23 L MCV MCH MCHC RDW Plt Count MPV INR (Anticoag Therapy) Sodium Potassium Chloride Carbon Dioxide Anion Gap BUN Creatinine Est GFR ( Amer) Est GFR (Non-Af Amer) BUN/Creatinine Ratio Glucose POC Glucose (mg/dL) 148 H Calcium Magnesium Total Bilirubin Direct Bilirubin Indirect Bilirubin AST ALT Alkaline Phosphatase Total Creatine Kinase Total Protein Albumin Globulin Albumin/Globulin Ratio 02/21/18 02/21/18 02/21/18 03:35 05:00 05:00 WBC 9.7 RBC 2.69 L Hgb 7.8 L Hct 23 L MCV 86 MCH 29 MCHC 34 RDW 16 H Plt Count 166 MPV 7.2 L INR (Anticoag Therapy) Sodium 138 Potassium 3.4 L Chloride 112 H Carbon Dioxide 22 Anion Gap 4 BUN 27 H Creatinine 0.47 L Est GFR ( Amer) 155.1 Est GFR (Non-Af Amer) 128.2 BUN/Creatinine Ratio 57.4 H Glucose 101 H POC Glucose (mg/dL) 111 H Calcium 7.7 L Magnesium 1.6 L Total Bilirubin 0.30 Direct Bilirubin 0.10 Indirect Bilirubin 0.2 L AST 8 L ALT 7 Alkaline Phosphatase 111 H Total Creatine Kinase 30 Total Protein 4.3 L Albumin 2.2 L Globulin 2.1 Albumin/Globulin Ratio 1.0 02/21/18 02/21/18 02/21/18 05:00 12:44 12:48 WBC RBC Hgb 7.7 L Hct 23 L MCV MCH MCHC RDW Plt Count MPV INR (Anticoag Therapy) 0.98 Sodium Potassium Chloride Carbon Dioxide Anion Gap BUN Creatinine Est GFR ( Amer) Est GFR (Non-Af Amer) BUN/Creatinine Ratio Glucose POC Glucose (mg/dL) 114 H Calcium Magnesium Total Bilirubin Direct Bilirubin Indirect Bilirubin AST ALT Alkaline Phosphatase Total Creatine Kinase Total Protein Albumin Globulin Albumin/Globulin Ratio Imaging: cxr 02/19 - ett above gallo, no focal infiltrate noted Assessment: 77y F w/pmhx of HTN, DM, HLD, 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 She was vomiting blood as per her in ER. Unclear if any significant trauma. History obtained stated no anticoagulants taken. She was intubated in the ER for declining mental status and for airway protection due to ongoing upper GI bleeding of bright red blood/hematemesis. Started on pressors, massive transfusion protocol. -Upper GI hemorrhage 2/2 to large lesser curvature gastric ulcer 2/2 to NSAID use -Hypovolemic Shock, resolved -acute blood loss anemia -Encephalopathy, resolved -Acute Respiratory Failure, unspecified -LUmbar pain 2/2 to L3 chronic fracture/DJD/sacral insuff DM HTN Plan: Neuro- on prop and fentanyl; increase fent for pain as needed; dilaudid prn for pain. hold prop after EGD for wenaing and possible extubaiton if needed. will have neurosurg eval once GI bleed issue resolved for further possible intervention given severe pain issues, pain managmeent may be needed also given inability to take NSAIDs now. daily sedation vacation. delirium prec. CVS- BP and HR stable. Making urine. Change IVF to LR 50cc/hr. some generalized edema+. may trial small dose lasix if needed. Hg trend down, no acitive bleeding though. if hg<7, will give prbc. plan for EGD look again today. tranfuse to keep hg>7. holding antiplatelets/nsaids. check hg q6h. keep MAP>65, sbp >90. Metoprolol and Hydralazine IV for HTN. Resp- intubated for airway protection. wean sedation after EGD for extubation. no secretions noted. VAP bundle. Asp prec. HOB elevated. ID- afebrile. wbc normal, likely was reactive leukocytosis from bleeding. no abx GI- s/p EGD 02/19, large gastric ulcer, s/p epi/cautery. Repeat lavage this morning lightly without any blood. Hg slow downtrend, ??dilution. Discussed with GI, EGD this afternoon planned for repeat look prior to extubation. cont PPI infusion. no further NSAIDS. NPO. Trend h/h q6h. Renal- Cr okay. monitor urine output. hernandez+ Heme- hg downtrend to 7.1 last. INR normal, Plt 200s. will transfuse 1 unit prbc today. Transfuse to keep hg >7. Endo- fingerstick q6h, slidign scale insulin. Musculsk- pressure ulcer prophylaxis. Bedrest. Wounds- none Nutrition- NPO DVT prophylaxis: SCDs GI prophylaxis: PPI Central Line: RIJ 02/19 Arterial Line: Left fem 02/19 Hernandez Cathetor: yes Disposition: ICU Code Status: full code Total Critical Care time is 35 minutes, excluding procedures/teaching Wicho Edgar MD Landcare Officer (Electronically Signed)
[2018-02-21] MEDS: hydrALAZINE IV* 20 MG/ML VIAL IV SLOW PU PRN (16:52)
[2018-02-21] MEDS ORDERED: Furosemide IV* 10 MG/ML 2 ML VIAL (20 MG) IV SLOW PU ONE (17:03)
[2018-02-21] MEDS: Metoprolol Tartrate IV* 1 MG/ML 5 ML VIAL IV PRN ×3 (17:33→23:45)
--- NOTE | 2018-02-21 19:20 | CONSULT ---
Consult Consult: INPATIENT PAIN CONSULTATION Keshia Garcia is a 77 year old female. She has a medical history significant for HTN, hyperlipidemia. Around January 15, she was going out with her dog, who jerked and pulled her off a step. She had immediate pain in her low back. She was admitted to the hospital and had a CT scan of her back and later an MRI showing sacral insufficiency fractures and a compression fracture at L3 which appeared subacute on CT. She was discharged home and took oxycodone. When this ran out, she was unable to get more and began taking Ibuprofen and Naproxen. On February 19, she began to vomit copious amounts of blood. She was admitted to [facility] , had fluid resuscitation and intubation and transfused 4 units. She had EGD with cauterization of bleeding ulcer. She was extubated this morning. Since extubation, she has had severe pain in her back. I am asked to see her in consultation. She is on a SUPPORT MERCHANDISER but can't work the button properly PAST MEDICAL HISTORY: HTN, HLD, DM2 Allergies Allergy/AdvReac Type Severity Reaction Status Date / Time No Known Allergies Allergy Verified 01/15/18 12:34 Current Medications Furosemide (Lasix Iv*) 20 mg IV SLOW PU ONCE ONE Stop: 02/22/18 02:01 Heparin Sodium (Porcine) (Heparin Flush Picc/Ml/Cvc(*)) 0 ml FLUSH 0600,1800 [facility]; Protocol Last Admin: 02/21/18 17:43 Dose: Not Given Hydralazine HCl (Apresoline Iv*) 5 mg IV SLOW PU Q2H PRN PRN Reason: for SBP>160 Last Admin: 02/21/18 16:52 Dose: 5 mg Hydromorphone HCl (Dilaudid Inj1s*) 1 mg IV SLOW PU Q2HR PRN PRN Reason: moderate pain Last Admin: 02/21/18 17:33 Dose: 1 mg Hydromorphone HCl (Dilaudid Inj1s*) 2 mg IV SLOW PU Q2H PRN PRN Reason: SEVERE PAIN Pantoprazole Sodium (Protonix Iv Bag*) 80 mg in 250 mls @ 25 mls/hr IVPB Q10H [facility] Last Admin: 02/21/18 12:40 Dose: 25 mls/hr Fentanyl Citrate (Fentanyl Graining Machine Operator*) 20 mls @ 1 mls/hr SUPPORT MERCHANDISER .change Q24H [facility]; Protocol Last Admin: 02/21/18 13:44 Dose: 1 mls/hr Lactated Ringer's (Lactated Ringers 1000 Ml Bag*) 1,000 mls @ 50 mls/hr IV PER RATE [facility] Last Admin: 02/21/18 11:10 Dose: 50 mls/hr Insulin Human Lispro (Humalog*) 0 units SUBCUT .SLIDING SCALE [facility]; Protocol Lidocaine (Lidoderm 5% Patch*) 1 patch TRANSDERM 1800 [facility] Metoprolol Tartrate (Lopressor Iv*) 5 mg IV Q6H PRN PRN Reason: for SBP>160 and HR>90 Last Admin: 02/21/18 17:33 Dose: 5 mg Ondansetron HCl (Zofran Inj*) 4 mg IV Q4H PRN PRN Reason: NAUSEA/VOMITING Last Admin: 02/19/18 09:00 Dose: 4 mg Pharmacy Profile Note (Lidocaine Patch Remove*) 1 note PATCH OFF 0600 [facility] SOCIAL HISTORY: Non smoker, non drinker. Lives with in [place] Vital Signs Temp Pulse Resp BP Pulse Ox 99.9 F 137 21 91/44 96 02/21/18 18:00 02/21/18 18:00 02/21/18 18:00 02/21/18 15:00 02/21/18 18:00 EXAM: HEENT: dry lips, hoarse voice LUNGS: mostly clear HEART: tachy ABDOMEN: Soft NEUROLOGIC: alert. Able to move hands to command ASSESSMENT: 1. Upper GI bleed secondary to NSAID use 2. Compression fracture of L3 3. Sacral Insufficiency Fractures PLAN: As she is NPO will try a Fentanyl transdermal patch. Will lower amount of fentanyl in SUPPORT MERCHANDISER. Will need to watch for oversedation. She is on IV fluids. I will follow
[2018-02-21] MEDS: Lidocaine PATCH 5%* 1 PATCH TRANSDERM SCH (19:43)
[2018-02-21] MEDS: fentaNYL PATCH 25 MCG/HR TRANSDERM SCH (20:15)
[2018-02-21] MEDS ORDERED: KCL 20 MEQ/100 ML IVPREMIX* 20 MEQ/100 ML BAG IV ONE (20:39)
[2018-02-21] MEDS ORDERED: Furosemide IV* 10 MG/ML 2 ML VIAL (20 MG) IV ONE (20:40)
[2018-02-21] MEDS ORDERED: KCL 20 MEQ/100 ML IVPREMIX* 20 MEQ/100 ML BAG ONE (20:43)
[2018-02-21] MEDS ORDERED: Magnesium Sulfate 2 GM IV* 2 GM/50 ML BAG ONE (20:43)
[2018-02-21] MEDS ORDERED: Furosemide IV* 10 MG/ML 2 ML VIAL (20 MG) ONE (20:43)
[2018-02-21] MEDS ORDERED: Metoprolol Tartrate IV* 1 MG/ML 5 ML VIAL ONE (20:44)
[2018-02-21] MEDS ORDERED: fentaNYL PCA* 20 ML PCA SCH (21:30)
[2018-02-21] MEDS: LORazepam INJ* 2 MG/ML 1 ML VIAL IV PUSH PRN (22:47)
[2018-02-22] MEDS ORDERED: Furosemide IV* 10 MG/ML 2 ML VIAL (20 MG) IV SLOW PU ONE ×2 (02:00→14:00)
[2018-02-22] MEDS: hydrALAZINE IV* 20 MG/ML VIAL IV SLOW PU PRN (02:05)
[2018-02-22] MEDS ORDERED: Diltiazem IV* 5 MG/ML 5 ML VIAL (for loading dose/IV Push) (25 MG) IV SLOW PU ONE (02:18)
[2018-02-22] MEDS: HYDROmorphone INJ1* 1 MG/ML SYRINGE IV SLOW PU PRN ×5 (02:28→22:21)
[2018-02-22] MEDS: Metoprolol Tartrate IV* 1 MG/ML 5 ML VIAL IV PRN ×4 (02:55→18:14)
[2018-02-22] MEDS ORDERED: LORazepam INJ* 2 MG/ML 1 ML VIAL IV PUSH ONE (03:41)
[2018-02-22] MEDS ORDERED: LORazepam INJ* 2 MG/ML 1 ML VIAL ONE (03:44)
[2018-02-22 06:19] LABS: Hematocrit 25 % (35-47); Hemoglobin 8.4 g/dl (12.0-16.0); Mean Corpuscular HGB Conc 34 g/dl (31-36); Mean Corpuscular Hemoglobin 29 pg (27-31); Mean Corpuscular Volume 86 fL (80-97); Mean Platelet Volume 6.7 um3 (7.4-10.4); Platelet Count 214 10^3/ul (150-450); Red Blood Count 2.89 10^6/ul (4.00-5.40); Red Cell Distribution Width 16 % (10.5-15); White Blood Count 10.1 10^3/ul (3.5-10.8)
[2018-02-22 06:24] LABS: INR 1.02 (0.77-1.02)
[2018-02-22] MEDS: LORazepam INJ* 2 MG/ML 1 ML VIAL IV PUSH PRN (06:43)
[2018-02-22] MEDS: fentaNYL Patch Check Q Shift 1 NOTE FOLLOW UP SCH ×2 (06:44→19:36)
--- NOTE | 2018-02-22 08:41 | RAD ---
HISTORY: r/o pneumonia vs congestion COMPARISONS: None VIEWS: 1: frontal AP view of the chest at 8:05 AM FINDINGS: LINES AND TUBES: A right internal jugular venous catheter is noted with the tip overlying the superior vena cava. CARDIOMEDIASTINAL SILHOUETTE: The cardiomediastinal silhouette is normal for portable technique. PLEURA: The costophrenic angles are sharp. No pleural abnormalities are noted. LUNG PARENCHYMA: There is hyperinflation. ABDOMEN: The upper abdomen is clear. There is no subphrenic gas. BONES AND SOFT TISSUES: Degenerative changes are noted along the spine. IMPRESSION: LINES AND TUBES ABOVE. NO ACTIVE CARDIOPULMONARY DISEASE.
[2018-02-22] MEDS: Pantoprazole* 80 mg IN NS 80 MG/250 ML BAG IVPB SCH ×2 (08:48→18:42)
[2018-02-22] MEDS: Lidocaine Patch REMOVE* 1 NOTE MISC PATCH OFF SCH (09:51)
[2018-02-22] MEDS ORDERED: Metoprolol Tartrate IV* 1 MG/ML 5 ML VIAL IV PRN (09:57)
--- NOTE | 2018-02-22 10:00 | PN ---
Progress Note - Progress Note Date of Service: 02/22/18 Note: Progress Note -- Critical Care 24 hour events: -extubated yesterday -EGD prior to extubation showing multiple ulcers, nonbleeding; 2 large ulcers were the likely culprits -on ppi gtt -hypertensive/resp distress after extubation; s/p lasix with good urine output -on NC now, no distress; on lower fentanyl for pain; pain management seen patient for pain issues -in bed, sleepy but awakens -family at bedside -tmax 100.4 Tele: sinus tachy Vitals: Vital Signs Temp 99.7 F 02/22/18 09:01 Pulse 133 02/22/18 09:01 Resp 9 02/22/18 09:01 BP 115/83 02/22/18 09:00 Pulse Ox 98 02/22/18 09:01 Intake & Output 02/21/18 02/22/18 02/22/18 18:59 06:59 18:59 Intake Total 1522 1549 Output Total 1101 6100 375 Balance 421 -4551 -375 Weight 75.6 kg Intake: IV Fluids 931 72 Magnesium Sulfate 50 NS (0.9%) 769 72 Potassium Chloride 112 IVPB 1112 LR 737 Magnesium Sulfate 100 NS (0.9%) 74 Potassium Chloride 201 Medicated IV 468 365 CC - Propofol/Diprivan 218 GEN - Pantoprazole/ 250 365 Protonix IV Narcotic Infusion 123 Fentanyl 123 Oral 0 Output: Hernandez 1101 6100 375 O2/Vent: NC 12L Infusions: LR, fentanyl 25, protonix gtt Current Medications: Fentanyl (Duragesic Patch 25 Mcg/Hr*) 25 mcg TRANSDERM Q72H DINA Last Admin: 02/21/18 20:15 Dose: 25 mcg Furosemide (Lasix Iv*) 20 mg IV SLOW PU ONCE ONE Stop: 02/22/18 14:01 Heparin Sodium (Porcine) (Heparin Flush Picc/Ml/Cvc(*)) 0 ml FLUSH 0600,1800 DINA; Protocol Last Admin: 02/22/18 06:45 Dose: Not Given Hydralazine HCl (Apresoline Iv*) 5 mg IV SLOW PU Q2H PRN PRN Reason: for SBP>160 Last Admin: 02/22/18 02:05 Dose: 5 mg Hydromorphone HCl (Dilaudid Inj1s*) 1 mg IV SLOW PU Q2HR PRN PRN Reason: moderate pain Last Admin: 02/22/18 07:57 Dose: 1 mg Hydromorphone HCl (Dilaudid Inj1s*) 2 mg IV SLOW PU Q2H PRN PRN Reason: SEVERE PAIN Last Admin: 02/21/18 19:43 Dose: 2 mg Pantoprazole Sodium (Protonix Iv Bag*) 80 mg in 250 mls @ 25 mls/hr IVPB Q10H [facility] Last Admin: 02/22/18 08:48 Dose: 25 mls/hr Fentanyl Citrate (Fentanyl A Class Lineman*) 20 mls @ 0.5 mls/hr LEDGE MAN .change Q24H [facility]; Protocol Potassium Chloride (Potassium Chloride 20 Meq/100 Ml Ivpremix*) 20 meq in 100 mls @ 50 mls/hr IV Q2H [facility] Stop: 02/22/18 15:59 Last Admin: 02/22/18 10:26 Dose: 50 mls/hr Insulin Human Lispro (Humalog*) 0 units SUBCUT .SLIDING SCALE [facility]; Protocol Lidocaine (Lidoderm 5% Patch*) 1 patch TRANSDERM 1800 [facility] Last Admin: 02/21/18 19:43 Dose: 1 patch Lorazepam (Ativan Inj*) 0.5 mg IV PUSH Q6H PRN PRN Reason: ANXIETY Last Admin: 02/22/18 06:43 Dose: 0.5 mg Metoprolol Tartrate (Lopressor Iv*) 5 mg IV Q3H PRN PRN Reason: for SBP>160 and HR>100 Ondansetron HCl (Zofran Inj*) 4 mg IV Q4H PRN PRN Reason: NAUSEA/VOMITING Last Admin: 02/19/18 09:00 Dose: 4 mg Pharmacy Profile Note (Lidocaine Patch Remove*) 1 note PATCH OFF 0600 [facility] Last Admin: 02/22/18 09:51 Dose: 1 note Pharmacy Profile Note (Fentanyl Patch Check Q Shift) 1 note FOLLOW UP 0700, 1900 [facility] Last Admin: 02/22/18 06:44 Dose: 1 note Physical Exam: General: awake, alert no distress Head: normocephalic, atraumatic HEENT: +pallor, no icterus, moist mucous membranes Neck: soft, supple, no jvd CVS: tachy, regular, no murmur Resp: bilateral air entry, no rhales, no wheeze, no rhonchi, no acc muscle use Abdomen: soft, nontender, nondistended, bowel sounds present Ext: pulses+, warm, no edema Skin: intact Neuro: awake, answers some questions, alert, follows commands, moves ext to command, pupils reactive Labs: Laboratory Results - last 24 hr 02/19/18 02/21/18 02/21/18 07:45 12:44 12:48 WBC RBC Hgb 7.7 L Hct 23 L MCV MCH MCHC RDW Plt Count MPV INR (Anticoag Therapy) Patient Temperature ABG pH ABG pH (Temp Correct) ABG pCO2 ABG pCO2 (Temp Corrct ABG pO2 ABG pO2 (Temp Correct ABG HCO3 ABG O2 Saturation ABG Base Excess Respiration Rate O2 Delivery Device Ventilator Type Vent Mode FiO2 Inspiratory Time PEEP Pressure Support Pressure Control EPAP IPAP BiPAP Sodium Potassium Chloride Carbon Dioxide Anion Gap BUN Creatinine Est GFR ( Amer) Est GFR (Non-Af Amer) BUN/Creatinine Ratio Glucose POC Glucose (mg/dL) 114 H Calcium Magnesium Blood Type O Negative Antibody Screen Negative Crossmatch See Detail 02/21/18 02/22/18 02/22/18 18:22 00:50 06:00 WBC RBC Hgb Hct MCV MCH MCHC RDW Plt Count MPV INR (Anticoag Therapy) Patient Temperature 37.6 ABG pH 7.42 ABG pH (Temp Correct) Not Reportable ABG pCO2 40 ABG pCO2 (Temp Corrct Not Reportable ABG pO2 115 H ABG pO2 (Temp Correct Not Reportable ABG HCO3 26.0 ABG O2 Saturation 99.2 H ABG Base Excess 1.3 Respiration Rate Not Reportable O2 Delivery Device Salter 12 l Ventilator Type Not Reportable Vent Mode Not Reportable FiO2 Not Reportable Inspiratory Time Not Reportable PEEP Not Reportable Pressure Support Not Reportable Pressure Control Not Reportable EPAP Not Reportable IPAP Not Reportable BiPAP Not Reportable Sodium Potassium Chloride Carbon Dioxide Anion Gap BUN Creatinine Est GFR ( Amer) Est GFR (Non-Af Amer) BUN/Creatinine Ratio Glucose POC Glucose (mg/dL) 157 H 171 H Calcium Magnesium Blood Type Antibody Screen Crossmatch 02/22/18 02/22/18 02/22/18 06:00 06:00 06:00 WBC 10.1 RBC 2.89 L Hgb 8.4 L Hct 25 L MCV 86 MCH 29 MCHC 34 RDW 16 H Plt Count 214 MPV 6.7 L INR (Anticoag Therapy) 1.02 Patient Temperature ABG pH ABG pH (Temp Correct) ABG pCO2 ABG pCO2 (Temp Corrct ABG pO2 ABG pO2 (Temp Correct ABG HCO3 ABG O2 Saturation ABG Base Excess Respiration Rate O2 Delivery Device Ventilator Type Vent Mode FiO2 Inspiratory Time PEEP Pressure Support Pressure Control EPAP IPAP BiPAP Sodium 139 Potassium 3.4 L Chloride 106 Carbon Dioxide 25 Anion Gap 8 BUN 11 Creatinine 0.43 L Est GFR ( Amer) 171.8 Est GFR (Non-Af Amer) 142.0 BUN/Creatinine Ratio 25.6 H Glucose 123 H POC Glucose (mg/dL) Calcium 8.2 L Magnesium 1.7 L Blood Type Antibody Screen Crossmatch Imaging: cxr 02/19 - ett above gallo, no focal infiltrate noted cxr 02/22 - minimal congestion, no ptx/infiltrate Assessment: 77y F w/pmhx of HTN, DM, HLD, 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 She was vomiting blood as per her in ER. Unclear if any significant trauma. History obtained stated no anticoagulants taken. She was intubated in the ER for declining mental status and for airway protection due to ongoing upper GI bleeding of bright red blood/hematemesis. Started on pressors, massive transfusion protocol. -Upper GI hemorrhage 2/2 to large lesser curvature gastric ulcer 2/2 to NSAID use -Hypovolemic Shock, resolved -acute blood loss anemia -Encephalopathy, resolved -Acute Respiratory Failure, unspecified -LUmbar pain 2/2 to L3 chronic fracture/DJD/sacral insuff DM HTN Plan: Neuro- sleepy; will dec IV fentanyl; pain management followup today; on fentanyl patch/lidocaine/IV dilaudid prn. will obtain neurosurg eval for back pain and further mangement if available. delirium prec. asp prec. CVS- Tachycardic/hypertensive; IV metoprolol and hydralazine. start PO once able to swallow. repeat IV lasxi 20mg x1 later today. Replete IV KCL. 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 Making urine. d/c IVF for today. Hg stable. holding antiplatelets/nsaids. keep MAP>65, sbp >90. Resp- NC 12, can likely titrate down. CXR without sig congestion/infiltrate. no sputum/cough. Asp prec. HOB elevated. ID- afebrile. wbc 10. no abx GI- s/p EGD 02/19; repeat EGD 02/21 with multiple ulcers, 2 large with clot, no active bleeding; Hg stable. no NGT. swallow eval later today, decrease opiates to make her more alert. cont PPI infusion today, will start IV BID protonix tomorrow. add carafate once able to take PO. may need reinsertion of ngt today. -discussed with family, high risk of rebleed. keep on liquid diet only for now. if re-bleeds, will need IR or surgical management. Renal- Cr okay. monitor urine output. hernandez+. Replete IV KCL. repeat lasix 20mg iv x1 later today. Heme- hg stable, 8s. Plt 200s. Transfuse to keep hg >7. Endo- fingerstick q6h, slidign scale insulin. Musculsk- pressure ulcer prophylaxis. Bedrest. oob to chair as toelrated. Pain management for back pain, following. Call neurosurg (Dr olvera) for eval of back pain and further options, he may be out of town and have to wait to come back. Wounds- none Nutrition- NPO; swallow eval today. DVT prophylaxis: SCDs GI prophylaxis: PPI Central Line: RIJ 02/19 Arterial Line: Left fem 02/19 Hernandez Cathetor: yes Disposition: ICU Code Status: full code Total Critical Care time is 30 minutes, excluding procedures/teaching Wicho Edgar MD [employer] Teacher (Electronically Signed)
[2018-02-22] MEDS: KCL 20 MEQ/100 ML IVPREMIX* 20 MEQ/100 ML BAG IV SCH ×3 (10:26→15:15)
--- NOTE | 2018-02-22 13:20 | PN ---
Progress Note - Progress Note Date of Service: 02/22/18 Note: INPATIENT PAIN-PROGRESS NOTE Keshia Garcia was visited. She was slightly sedate this am and her Fentanyl NEWS TECHNICAL DIRECTOR was lowered. She doesn't note any belly pain or back pain with me but is a bit more sedate than she was last night. Still tachycardic VITAL SIGNS Temp Pulse Resp BP Pulse Ox 100.0 F 130 10 145/70 98 02/22/18 12:01 02/22/18 12:01 02/22/18 12:01 02/22/18 12:00 02/22/18 12:01 EXAM: LUNGS: Clear anteriorly HEART: Tachy ABDOMEN: soft NEUROLOGIC: alert. Able to move extremities ASSESSMENT: 1. Upper GI Bleed Secondary to NSAID use 2. L3 Compression Fracture 3. Sacral Insuffiency Fractures PLAN: would continue to use the Fentanyl patch and taper NEWS TECHNICAL DIRECTOR. Ativan for anxiety about pain and moving. She seems comfortable, if sedate. Not sure if NS can add much. Could try bracing. Continue to slowly mobilize.
[2018-02-22] MEDS ORDERED: fentaNYL PCA* 20 ML PCA SCH (13:22)
[2018-02-22] MEDS: Lidocaine PATCH 5%* 1 PATCH TRANSDERM SCH (18:21)
[2018-02-23] MEDS: Pantoprazole* 80 mg IN NS 80 MG/250 ML BAG IVPB SCH (05:48)
[2018-02-23 05:55] LABS: Hematocrit 27 % (35-47); Hemoglobin 9.1 g/dl (12.0-16.0); Mean Corpuscular HGB Conc 35 g/dl (31-36); Mean Corpuscular Hemoglobin 30 pg (27-31); Mean Corpuscular Volume 86 fL (80-97); Mean Platelet Volume 6.6 fL (7.4-10.4); Platelet Count 248 10^3/ul (150-450); Red Blood Count 3.08 10^6/ul (4.00-5.40); Red Cell Distribution Width 16 % (10.5-15)
[2018-02-23 06:13] LABS: EGFR Non-African American 154.4 (>60)
[2018-02-23] MEDS: Lidocaine Patch REMOVE* 1 NOTE MISC PATCH OFF SCH (06:18)
[2018-02-23] MEDS: fentaNYL Patch Check Q Shift 1 NOTE FOLLOW UP SCH ×2 (06:53→18:58)
[2018-02-23] MEDS ORDERED: Potassium Chloride LIQUID* 20 MEQ PACKET PO ONE (08:55)
[2018-02-23] MEDS ORDERED: Metoprolol Tartrate IV* 1 MG/ML 5 ML VIAL IV PRN (10:38)
--- NOTE | 2018-02-23 10:46 | PN ---
Progress Note - Progress Note Date of Service: 02/23/18 Note: Progress Note -- Critical Care 24 hour events: -awake/alert, verbalizing. taking sips of water all night -forgetful at times, knwon as per family -no resp distress/cp/sob/n/v/dizziness/diarrhea/abd pain -currently states no back pain, minimal -she states she would like to get out of bed to chair, and would like to eat. -some desaturation overnight with moving/turning, was on 10L, weaned down -animal care giver at bedside Tele: sinus tachy Vitals: Vital Signs Temp 99.1 F 02/23/18 08:01 Pulse 109 02/23/18 08:01 Resp 15 02/23/18 08:01 BP 139/78 02/23/18 08:00 Pulse Ox 99 02/23/18 08:01 Intake & Output 02/22/18 02/23/18 02/23/18 18:59 06:59 18:59 Intake Total 594 786 Output Total 2350 480 100 Balance -1756 306 -100 Weight 75.6 kg 69.2 kg Intake: IV Fluids 396 181 LR 185 NS (0.9%) 46 181 Potassium Chloride 165 IVPB 163 Potassium Chloride 163 Medicated IV 198 382 GEN - Pantoprazole/ 198 382 Protonix Oral 0 60 Output: Hernandez 2350 480 100 O2/Vent: NC 4L Infusions: protonix gtt Current Medications: Amlodipine Besylate (Norvasc Tab*) 10 mg PO DAILY DINA Atenolol (Tenormin Tab*) 75 mg PO DAILY [facility] Fentanyl (Duragesic Patch 25 Mcg/Hr*) 25 mcg TRANSDERM Q72H DINA Last Admin: 02/21/18 20:15 Dose: 25 mcg Furosemide (Lasix Tab*) 20 mg PO ONCE ONE Stop: 02/23/18 15:01 Heparin Sodium (Porcine) (Heparin Flush Picc/Ml/Cvc(*)) 0 ml FLUSH 0600,1800 [facility]; Protocol Last Admin: 02/23/18 05:32 Dose: 1 ml Hydralazine HCl (Apresoline Iv*) 5 mg IV SLOW PU Q2H PRN PRN Reason: for SBP>160 Last Admin: 02/22/18 02:05 Dose: 5 mg Hydromorphone HCl (Dilaudid Inj1s*) 1 mg IV SLOW PU Q2HR PRN PRN Reason: moderate pain Last Admin: 02/22/18 22:21 Dose: 1 mg Magnesium Sulfate (Magnesium Sulfate 2 Gm Iv*) 2 gm in 50 mls @ 50 mls/hr IV DAILY [facility] Stop: 02/24/18 09:59 Lidocaine (Lidoderm 5% Patch*) 1 patch TRANSDERM 1800 [facility] Last Admin: 02/22/18 18:21 Dose: Not Given Metoprolol Tartrate (Lopressor Iv*) 5 mg IV Q6H PRN PRN Reason: for SBP>160 and HR>100 Ondansetron HCl (Zofran Inj*) 4 mg IV Q4H PRN PRN Reason: NAUSEA/VOMITING Last Admin: 02/19/18 09:00 Dose: 4 mg Pantoprazole Sodium (Protonix Iv*) 40 mg IV BID [facility] Pharmacy Profile Note (Lidocaine Patch Remove*) 1 note PATCH OFF 0600 [facility] Last Admin: 02/23/18 06:18 Dose: Not Given Pharmacy Profile Note (Fentanyl Patch Check Q Shift) 1 note FOLLOW UP 0700, 1900 [facility] Last Admin: 02/23/18 06:53 Dose: 1 note Sertraline HCl (Zoloft*) 100 mg PO BID [facility] Sucralfate (Carafate*) 1 gm PO TID [facility] Physical Exam: General: awake, alert no distress Head: normocephalic, atraumatic HEENT: +pallor, no icterus, moist mucous membranes Neck: soft, supple, no jvd CVS: tachy, regular, no murmur Resp: bilateral air entry, no rhales, no wheeze, no rhonchi, no acc muscle use Abdomen: soft, nontender, nondistended, bowel sounds present Ext: pulses+, warm, no edema Skin: intact Neuro: awake, answers some questions, alert, follows commands, moves ext to command, pupils reactive Labs: Laboratory Results - last 24 hr 02/22/18 02/23/18 02/23/18 12:17 05:40 05:40 WBC 10.0 RBC 3.08 L Hgb 9.1 L Hct 27 L MCV 86 MCH 30 MCHC 35 RDW 16 H Plt Count 248 MPV 6.6 L Sodium 138 Potassium 3.6 Chloride 102 Carbon Dioxide 26 Anion Gap 10 BUN 9 Creatinine 0.40 L Est GFR ( Amer) 186.8 Est GFR (Non-Af Amer) 154.4 BUN/Creatinine Ratio 22.5 H Glucose 108 H POC Glucose (mg/dL) 147 H Calcium 8.8 Magnesium 1.4 L Imaging: cxr 02/19 - ett above gallo, no focal infiltrate noted cxr 02/22 - minimal congestion, no ptx/infiltrate Assessment: 77y F w/pmhx of HTN, DM, HLD, 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 She was vomiting blood as per her in ER. Unclear if any significant trauma. History obtained stated no anticoagulants taken. She was intubated in the ER for declining mental status and for airway protection due to ongoing upper GI bleeding of bright red blood/hematemesis. Started on pressors, massive transfusion protocol. -Upper GI hemorrhage 2/2 to large lesser curvature gastric ulcer 2/2 to NSAID use -Hypovolemic Shock, resolved -acute blood loss anemia -Encephalopathy, resolved -Acute Respiratory Failure, unspecified -Lumbar pain 2/2 to L3 chronic fracture/DJD/sacral insuff DM HTN Plan: Neuro- awake/alert today; off fentnayl infusion. pain seems better controlled with fentanyl patch only. will keep dilaudid 0.5mg IV prn only. Pain management following. cont lidocaine patch for back. Called neurosurgery, they will see patient sunday and determine further imaging and workup for intervention if possible for chronic lumbar fracture. delirium prec. asp prec. CVS- Tachycardia better, hypertensive 160s; restart home atenolol 75mg daily, increase norvasc 10mg daily; IV metoprolol and hydralazine PRN. Lasix 20mg po x1. Replete PO KCL and IV Mg. Making urine. Hg stable/rising. holding antiplatelets/nsaids. keep MAP>65, sbp >90. Resp- NC 4L, weaning down; probably mild congestionm, lungs clear otherwise, no cough/sputum. Asp prec. HOB elevated. ID- afebrile. wbc 10. no abx indicated. GI- s/p EGD 02/19; repeat EGD 02/21 with multiple ulcers, 2 large with clot, no active bleeding -hg stable. no ngt. passed bedside swallow. discussed with patient, will keep on full liquid diet for a few days. Risk of rebleed. -d/c PPI gtt, start IV PPI BID. Carafate 1gm TID. Renal- Cr okay. making urine. hernandez+, can probably d/c in next 24 hours. Lasix 20mg po x1 today. Replete PO KCL and IV Mg. Heme- hg stable, 9s. Plt 200s. Transfuse to keep hg >7. Endo- check hba1c tomorrow. restart metformin 500mg bid after starting PO intake tomorrow, current BG <180. fingerstick ACHS, Aspart insulin achs sliding scale. Musculsk- pressure ulcer prophylaxis. oob to chair as tolerated. Pain management for back pain. Neurosurgery to see patient sunday about further plan for back pain , discussed with (Dr olvera) Wounds- none Nutrition- full liquid carb consistent diet DVT prophylaxis: SCDs GI prophylaxis: PPI IV bid Central Line: RIJ 02/19 Arterial Line: Left fem 02/19; likely to d/c art line today Hernandez Cathetor: yes Disposition: ICU today Code Status: full code Wicho Edgar MD Home Theater Experience Expert (Electronically Signed)
[2018-02-23] MEDS: Magnesium Sulfate 2 GM IV* 2 GM/50 ML BAG IV SCH (11:01)
[2018-02-23] MEDS: Ondansetron INJ* 2 MG/ML VIAL IV PRN (11:19)
[2018-02-23] MEDS: Pantoprazole IV* 40 MG IV SCH ×2 (11:23→21:46)
[2018-02-23] MEDS: Atenolol TAB* 50 MG PO SCH (11:24)
[2018-02-23] MEDS: amLODIPine TAB* 5 MG PO SCH (11:26)
[2018-02-23] MEDS: Insulin LISPRO* 1 UNITS UNIT SUBCUT SCH ×3 (12:31→21:29)
[2018-02-23] MEDS ORDERED: Furosemide TAB* 20 MG PO ONE (15:00)
[2018-02-23] MEDS: Sucralfate TAB* 1 GM PO SCH ×2 (15:02→21:45)
--- NOTE | 2018-02-23 15:07 | PRO ---
DICTATION ENDS ABRUPTLY CC: Dr. Tarun Gibbons; Dr. Bhandari.* DATE OF PROCEDURE: 02/21/18 - ROOM #403 PROCEDURE PERFORMED: Esophagogastroduodenoscopy. INDICATION FOR PROCEDURE: Acute blood loss anemia, large gastric ulcers. MEDICATIONS GIVEN: No additional medications. The patient was intubated and sedated on the ventilator with propofol; however, monitored care was done by me during this time. Informed consent was obtained from the patient's son. DESCRIPTION OF PROCEDURE: After the EGD procedure, including the risks, benefits, and alternatives with the risks not limited to perforation, missed lesions and/or were explained to the healthcare proxy, the son, Shawn Garcia , written consent was then obtained. This was confirmed with the nurse as well. IV medication was given and a bite-block was placed between the teeth. The adult Olympus gastroscope was then passed through the patient's mouth, through the upper esophageal sphincter into the tubular esophagus. The tubular esophagus was grossly normal with minimal reflux. Scope was advanced through the lower esophageal sphincter into the stomach. No fresh or old blood was seen ; however, she did have 2 very large gastric ulcers, 1 on the lesser curvature and 1 on the greater curvature of the stomach along the body. The one on the greater curvature was quite large in appearance and deep. There were also 2 additional small ulcerations, clean based, along the body of the stomach. Looking through the duodenum revealed some scant duodenal erosions without distinct ulceration... DICTATION ENDS ABRUPTLY [id number]/[facility] #: [id number] [facility]IL HOSPITALGricelda
[2018-02-23] MEDS: Lidocaine PATCH 5%* 1 PATCH TRANSDERM SCH (16:53)
[2018-02-23] MEDS ORDERED: Alteplase (CATHFLO)* 2 MG VIAL IV ONE (19:00)
[2018-02-23 19:02] LABS: Hematocrit 29 % (35-47); Hemoglobin 9.8 g/dl (12.0-16.0)
[2018-02-23] MEDS: Sertraline* 100 MG TAB PO SCH (21:44)
[2018-02-24] MEDS: HYDROmorphone INJ1* 1 MG/ML SYRINGE IV SLOW PU PRN ×2 (01:01→13:17)
[2018-02-24] MEDS: Lidocaine Patch REMOVE* 1 NOTE MISC PATCH OFF SCH (05:27)
[2018-02-24 05:41] LABS: Hematocrit 28 % (35-47); Hemoglobin 9.4 g/dl (12.0-16.0); Mean Corpuscular HGB Conc 34 g/dl (31-36); Mean Corpuscular Hemoglobin 29 pg (27-31); Mean Corpuscular Volume 86 fL (80-97); Mean Platelet Volume 6.8 fL (7.4-10.4); Platelet Count 314 10^3/ul (150-450); Red Blood Count 3.26 10^6/ul (4.00-5.40); Red Cell Distribution Width 15 % (10.5-15); White Blood Count 9.4 10^3/ul (3.5-10.8)
[2018-02-24 06:01] LABS: EGFR Non-African American 125.1 (>60)
[2018-02-24] MEDS: fentaNYL Patch Check Q Shift 1 NOTE FOLLOW UP SCH ×2 (07:09→19:34)
[2018-02-24] MEDS: Insulin LISPRO* 1 UNITS UNIT SUBCUT SCH ×4 (07:41→20:37)
[2018-02-24] MEDS: Magnesium Sulfate 2 GM IV* 2 GM/50 ML BAG IV SCH (08:30)
[2018-02-24] MEDS: Pantoprazole IV* 40 MG IV SCH ×2 (08:31→20:25)
[2018-02-24] MEDS: amLODIPine TAB* 5 MG PO SCH (08:31)
[2018-02-24] MEDS: Atenolol TAB* 50 MG PO SCH (08:31)
[2018-02-24] MEDS: Sucralfate TAB* 1 GM PO SCH ×3 (08:32→20:25)
[2018-02-24] MEDS: Sertraline* 100 MG TAB PO SCH ×2 (08:32→20:25)
[2018-02-24] MEDS ORDERED: Potassium Chlor TAB* 20 MEQ TAB.ER PO SCH (09:00)
--- NOTE | 2018-02-24 09:42 | PN ---
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 bedside Tele: NSR Vitals: Vital Signs Temp 99.0 F 02/24/18 07:01 Pulse 86 02/24/18 08:01 Resp 17 02/24/18 08:01 BP 129/67 02/24/18 08:00 Pulse Ox 96 02/24/18 08:01 Intake & Output 02/23/18 02/24/18 02/24/18 19:59 06:59 18:59 Intake Total 0 Output Total 0 Balance 0 Weight Intake: IV Fluids Magnesium Sulfate IVPB Magnesium Sulfate Oral 0 Output: Urine 0 Hernandez Other: # Bowel Movements Estimated Stool Amount O2/Vent: RA Infusions: heplock Current Medications: Amlodipine Besylate (Norvasc Tab*) 10 mg PO DAILY [facility] Last Admin: 02/24/18 08:31 Dose: 10 mg Atenolol (Tenormin Tab*) 75 mg PO DAILY [facility] Last Admin: 02/24/18 08:31 Dose: 75 mg Fentanyl (Duragesic Patch 25 Mcg/Hr*) 25 mcg TRANSDERM Q72H [facility] Last Admin: 02/21/18 20:15 Dose: 25 mcg Heparin Sodium (Porcine) (Heparin Flush Picc/Ml/Cvc(*)) 0 ml FLUSH 0600,1800 [facility]; Protocol Last Admin: 02/24/18 05:26 Dose: 3 ml Hydralazine HCl (Apresoline Iv*) 5 mg IV SLOW PU Q2H PRN PRN Reason: for SBP>160 Last Admin: 02/22/18 02:05 Dose: 5 mg Hydromorphone HCl (Dilaudid Inj1s*) 1 mg IV SLOW PU Q2HR PRN PRN Reason: moderate pain Last Admin: 02/24/18 01:01 EST Dose: 1 mg Magnesium Sulfate (Magnesium Sulfate 2 Gm Iv*) 2 gm in 50 mls @ 50 mls/hr IV DAILY [facility] Stop: 02/24/18 09:59 Last Admin: 02/24/18 08:30 Dose: 50 mls/hr Potassium Chloride (Potassium Chloride 20 Meq/100 Ml Ivpremix*) 20 meq in 100 mls @ 50 mls/hr IV Q2H [facility] Stop: 02/24/18 12:59 Insulin Human Lispro (Humalog*) 0 units SUBCUT ACHS [facility]; Protocol Last Admin: 02/24/18 07:41 Dose: Not Given Lidocaine (Lidoderm 5% Patch*) 1 patch TRANSDERM 1800 [facility] Last Admin: 02/23/18 16:53 Dose: 1 patch Metoprolol Tartrate (Lopressor Iv*) 5 mg IV Q6H PRN PRN Reason: for SBP>160 and HR>100 Last Admin: 02/23/18 11:36 Dose: 5 mg Ondansetron HCl (Zofran Inj*) 4 mg IV Q4H PRN PRN Reason: NAUSEA/VOMITING Last Admin: 02/23/18 11:19 Dose: 4 mg Pantoprazole Sodium (Protonix Iv*) 40 mg IV BID [facility] Last Admin: 02/24/18 08:31 Dose: 40 mg Pharmacy Profile Note (Lidocaine Patch Remove*) 1 note PATCH OFF 0600 [facility] Last Admin: 02/24/18 05:27 Dose: 1 note Pharmacy Profile Note (Fentanyl Patch Check Q Shift) 1 note FOLLOW UP 0700, 1900 [facility] Last Admin: 02/24/18 07:09 Dose: 1 note Potassium Chloride (Klor Con Er Tab*) 40 meq PO BID [facility] Stop: 02/24/18 21:01 Sertraline HCl (Zoloft*) 100 mg PO BID [facility] Last Admin: 02/24/18 08:32 Dose: 100 mg Sucralfate (Carafate*) 1 gm PO TID [facility] Last Admin: 02/24/18 08:32 Dose: 1 gm Physical Exam: General: awake, alert no distress Head: normocephalic, atraumatic HEENT: no pallor, no icterus, moist mucous membranes Neck: soft, supple, no jvd CVS: normal rate, regular, no murmur Resp: bilateral air entry, no rhales, no wheeze, no rhonchi, no acc muscle use Abdomen: soft, nontender, nondistended, bowel sounds present Ext: pulses+, warm, no edema Skin: intact Neuro: awake, answers some questions, alert, follows commands, moves ext to command, pupils reactive Labs: Laboratory Results - last 24 hr 02/23/18 02/23/18 02/23/18 12:16 16:42 18:50 WBC RBC Hgb 9.8 L Hct 29 L MCV MCH MCHC RDW Plt Count MPV Sodium Potassium Chloride Carbon Dioxide Anion Gap BUN Creatinine Est GFR ( Amer) Est GFR (Non-Af Amer) BUN/Creatinine Ratio Glucose POC Glucose (mg/dL) 164 H 153 H Calcium Magnesium 02/23/18 02/24/18 02/24/18 21:17 05:20 05:20 WBC 9.4 RBC 3.26 L Hgb 9.4 L Hct 28 L MCV 86 MCH 29 MCHC 34 RDW 15 Plt Count 314 MPV 6.8 L Sodium 135 Potassium 3.0 L Chloride 96 L Carbon Dioxide 30 Anion Gap 9 BUN 8 Creatinine 0.48 L Est GFR ( Amer) 151.4 Est GFR (Non-Af Amer) 125.1 BUN/Creatinine Ratio 16.7 Glucose 141 H POC Glucose (mg/dL) 142 H Calcium 8.9 Magnesium 1.4 L Imaging: cxr 02/19 - ett above gallo, no focal infiltrate noted cxr 02/22 - minimal congestion, no ptx/infiltrate Assessment: 77y F w/pmhx of HTN, DM, HLD, 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 She was vomiting blood as per her in ER. Unclear if any significant trauma. History obtained stated no anticoagulants taken. She was intubated in the ER for declining mental status and for airway protection due to ongoing upper GI bleeding of bright red blood/hematemesis. Started on pressors, massive transfusion protocol. -Upper GI hemorrhage 2/2 to large lesser curvature gastric ulcer 2/2 to NSAID use -Hypovolemic Shock, resolved -acute blood loss anemia -Encephalopathy, resolved -Acute Respiratory Failure, unspecified -Lumbar pain 2/2 to L3 chronic fracture/DJD/sacral insuff DM HTN Plan: Neuro- awake/alert today; stable/good pain control with fentanyl 25mcg patch only now; prn dilaudid on board if needed. cont lidocaine patch to back also. Neurosurgery planned to see patient tomorrow (Dr Soto) for w/u of back pain. oob to chair, pt/ot, attempt to ambulate. delirium prec. baseline forgetfullness, ?early dementia? CVS- HR and BP controlled better now; cont atenolol 75mg daily, norvasc 10mg daily. off IVF, appear euvolemic. IVF PRN if needed, follow electrolytes. encouarge PO intake now. Replete IV and PO KCL. Making urine. Hg stable/rising. holding antiplatelets/nsaids. Resp- on RA now, no distress ID- afebrile. wbc 9. no abx indicated. GI- s/p EGD 02/19; repeat EGD 02/21 with multiple ulcers, 2 large with clot, no active bleeding -hg stable. no acute bleeding noted further. cont full liquid diet, plan to advance to puree and mech soft in a few days and keep on light diet, discussed with care takeer. There is a risk of rebleed given ulcer number/size. -cont IV PPI BID whiel in hospital; Carafate 1gm TID. -if rebleed, will need IR or surgery; plan for repeat endoscopy in 1-2 months by GI. Renal- Cr okay. making urine. d/c hernandez today. replete IV and PO KCL. IVF PRN as needed. no further diuretics needed. Heme- hg stable, 9s. Plt 200s. Transfuse to keep hg >7. no antiplatelets, would hold asa for a few weeks, discussed with family Endo- [id number]; restart metformin 500mg bid. fingerstick ACHS, Aspart insulin achs sliding scale as needed. Musculsk- pressure ulcer prophylaxis. oob to chair as tolerated/ambulate. Pain management for back pain. Neurosurgery to see patient sunday about further plan for back pain , discussed with (Dr olvera) Wounds- none Nutrition- full liquid carb consistent diet DVT prophylaxis: SCDs GI prophylaxis: PPI IV bid Central Line: RIJ 02/19; d/c today Arterial Line: none Hernandez Cathetor: yes; d/c today Disposition: stable for transfer to medical floor; discussed with hospitalist Code Status: full code Wicho Edgar MD Health Education Specialist (Electronically Signed)
[2018-02-24] MEDS: KCL 20 MEQ/100 ML IVPREMIX* 20 MEQ/100 ML BAG IV SCH ×2 (10:38→12:39)
[2018-02-24] MEDS: Lidocaine PATCH 5%* 1 PATCH TRANSDERM SCH (17:29)
[2018-02-24] MEDS: fentaNYL PATCH 25 MCG/HR TRANSDERM SCH (20:19)
[2018-02-24] MEDS: metFORMIN* 500 MG TAB PO SCH (20:25)
[2018-02-25] MEDS ORDERED: Potassium Chlor TAB* 20 MEQ TAB.ER PO ONE (06:00)
[2018-02-25] MEDS: Lidocaine Patch REMOVE* 1 NOTE MISC PATCH OFF SCH (06:08)
[2018-02-25 06:22] LABS: Hematocrit 28 % (35-47); Hemoglobin 9.4 g/dl (12.0-16.0); Mean Corpuscular HGB Conc 34 g/dl (31-36); Mean Corpuscular Hemoglobin 29 pg (27-31); Mean Corpuscular Volume 86 fL (80-97); Mean Platelet Volume 6.8 fL (7.4-10.4); Platelet Count 331 10^3/ul (150-450); Red Blood Count 3.27 10^6/ul (4.00-5.40); Red Cell Distribution Width 15 % (10.5-15)
[2018-02-25] MEDS: fentaNYL Patch Check Q Shift 1 NOTE FOLLOW UP SCH ×2 (06:32→19:20)
[2018-02-25 06:44] LABS: EGFR Non-African American 106.9 (>60)
[2018-02-25] MEDS: Insulin LISPRO* 1 UNITS UNIT SUBCUT SCH ×4 (07:59→22:35)
[2018-02-25] MEDS: Atenolol TAB* 50 MG PO SCH (09:16)
[2018-02-25] MEDS: Pantoprazole IV* 40 MG IV SCH ×2 (09:18→22:52)
[2018-02-25] MEDS: Sucralfate TAB* 1 GM PO SCH ×3 (09:18→23:02)
[2018-02-25] MEDS: Sertraline* 100 MG TAB PO SCH ×2 (09:22→22:57)
[2018-02-25] MEDS: amLODIPine TAB* 5 MG PO SCH (09:23)
[2018-02-25] MEDS: metFORMIN* 500 MG TAB PO SCH ×2 (09:23→22:56)
--- NOTE | 2018-02-25 14:54 | PN ---
Subjective Date of Service: 02/25/18 Interval History: Pt seen and examined. Meds and labs reviewed. CC: N/A ROS: Denied HELMS/dizziness, F/C, N/V, CP, SOB, increased cough, sputum production , abd pain, diarrhea, constipation, dysuria, myalgias, arthralgias, throat pain , and new skin lesions. The rest of the 14 point ROS are unremarkable. PHYSICAL EXAM: GEN APPEARANCE: Awake, not in acute distress HEENT: NC/AT, PERRLA, moist oral mucosa, (-) throat erythema NECK: Soft, supple, (-) cervical LAD, (-)JVD HEART: S1S2 WNL, RRR, No MRG CHEST: CTA, BL, GAE, No W/R/R ABD: Soft, ND/NT, NABS 4x Q EXT: No C/C/E SKIN: Warm to touch PSYCH: No active psychosis, hallucinations, depression, SI/HI Objective Active Medications: Amlodipine Besylate (Norvasc Tab*) 10 mg PO DAILY [facility] Last Admin: 02/25/18 09:23 Dose: 10 mg Atenolol (Tenormin Tab*) 75 mg PO DAILY [facility] Last Admin: 02/25/18 09:16 Dose: 75 mg Fentanyl (Duragesic Patch 25 Mcg/Hr*) 25 mcg TRANSDERM Q72H [facility] Last Admin: 02/24/18 20:19 Dose: 25 mcg Heparin Sodium (Porcine) (Heparin Flush Picc/Ml/Cvc(*)) 0 ml FLUSH 0600,1800 [facility]; Protocol Last Admin: 02/25/18 06:08 Dose: Not Given Hydralazine HCl (Apresoline Iv*) 5 mg IV SLOW PU Q2H PRN PRN Reason: for SBP>160 Last Admin: 02/22/18 02:05 Dose: 5 mg Hydromorphone HCl (Dilaudid Inj1s*) 1 mg IV SLOW PU Q2HR PRN PRN Reason: moderate pain Last Admin: 02/24/18 13:17 Dose: 1 mg Insulin Human Lispro (Humalog*) 0 units SUBCUT ACHS [facility]; Protocol Last Admin: 02/25/18 12:00 Dose: Not Given Lidocaine (Lidoderm 5% Patch*) 1 patch TRANSDERM 1800 [facility] Last Admin: 02/24/18 17:29 Dose: 1 patch Metformin HCl (Glucophage*) 500 mg PO BID [facility] Last Admin: 02/25/18 09:23 Dose: 500 mg Metoprolol Tartrate (Lopressor Iv*) 5 mg IV Q6H PRN PRN Reason: for SBP>160 and HR>100 Last Admin: 02/23/18 11:36 Dose: 5 mg Ondansetron HCl (Zofran Inj*) 4 mg IV Q4H PRN PRN Reason: NAUSEA/VOMITING Last Admin: 02/23/18 11:19 Dose: 4 mg Pantoprazole Sodium (Protonix Iv*) 40 mg IV BID [facility] Last Admin: 02/25/18 09:18 Dose: 40 mg Pharmacy Profile Note (Lidocaine Patch Remove*) 1 note PATCH OFF 0600 [facility] Last Admin: 02/25/18 06:08 Dose: 1 note Pharmacy Profile Note (Fentanyl Patch Check Q Shift) 1 note FOLLOW UP 0700, 1900 [facility] Last Admin: 02/25/18 06:32 Dose: 1 note Sertraline HCl (Zoloft*) 100 mg PO BID [facility] Last Admin: 02/25/18 09:22 Dose: 100 mg Sucralfate (Carafate*) 1 gm PO TID [facility] Last Admin: 02/25/18 14:46 Dose: 1 gm Vital Signs - 8 hr 02/25/18 02/25/18 02/25/18 08:00 08:31 12:29 Temperature 97.6 F 97.9 F Pulse Rate 83 106 Respiratory 18 20 20 Rate Blood Pressure 103/48 105/73 (mmHg) O2 Sat by Pulse 97 97 94 Oximetry Oxygen Devices in Use Now: None Result Diagrams: 02/25/18 05:56 02/25/18 05:56 Additional Lab and Data: Lab Results 02/19/18 02/19/18 Range/Units 07:45 07:45 WBC 22.9 H (3.5-10.8) 10^3/ul RBC 3.18 L (4.00-5.40) 10^6/ul Hgb 8.8 L (12.0-16.0) g/dl Hct 26 L (35-47) % MCV 83 (80-97) fL MCH 28 (27-31) pg MCHC 33 (31-36) g/dl RDW 14 (10.5-15) % Plt Count 494 H (150-450) 10^3/ul MPV 7.1 L (7.4-10.4) um3 Neut % (Auto) Pending Lymph % (Auto) Pending [place] % (Auto) Pending Eos % (Auto) Pending Baso % (Auto) Pending Absolute Neuts (auto) Pending Absolute Lymphs (auto) Pending Absolute Monos (auto) Pending Absolute Eos (auto) Pending Absolute Basos (auto) Pending Absolute Nucleated RBC Pending Nucleated RBC % Pending Blood Type Pending Antibody Screen Pending Microbiology and Other Data: Microbiology 02/19/18 09:07 Nasal Screen MRSA (PCR) - Final Nasal Mrsa Not Detected Assess/Plan/Problems-Billing Assessment: ICU Course: 02/19: Intubated; shock due to blood loss, hematemesisintubation for airway protection; S/P EGD showing PUD ; transfused; placed on pressors 02/20: Stable H&H and off pressors 02/21: Still intubated but subsequently extubated; Increase of Fentanyl 02/22: HTN and respiratory distress post-extubation; S/P Lasix RxStabilized; developed fever but CXR NAD 02/23: Stable; Hungry; Decreased sats and was placed on 10L O2 then weaned down 02/24: Stablefloor transfer - Patient Problems (1) PUD (peptic ulcer disease) Current Visit: Yes Status: Acute Code(s): K27.9 - PEPTIC ULC, SITE UNSP, UNSP AC OR CHR, W/O HEMOR OR PERF SNOMED Code(s): 70860323 Comment: -Continue Pantoprazole IV BID---consider transitioning to PO in AM after touching base with GI -Continue Carafate (2) Lumbar compression fracture Current Visit: Yes Status: Acute Code(s): S32.000A - WEDGE COMPRESSION FRACTURE OF UNSP LUMBAR VERTEBRA, INIT SNOMED Code(s): 154652214 Comment: -D/W Dr. Chamberlain who mentioned that he will be evaluating pt later during the day -Will obtain F/U standing AP-lateral lumbar X ray and non-contrast CT of lumbar spine -Continue Lidocaine and Fentanyl patchesotherwise pain well controlled -Continue PRN IV Dilaudid -Currently has been walking to the bathroom with a walker -PT eval today suggests that pt doing well with rolling walker without requiring any physical assistance; no further PT needs identified (3) Hypertension Current Visit: No Status: Chronic Code(s): I10 - ESSENTIAL (PRIMARY) HYPERTENSION SNOMED Code(s): 29360899 Comment: -Well-controlled -Continue Amlodipine, Atenolol, and PRN IV meds (4) Depression Current Visit: No Status: Chronic Code(s): F32.9 - MAJOR DEPRESSIVE DISORDER , SINGLE EPISODE, UNSPECIFIED SNOMED Code(s): 04923954 Comment: -Continue Zoloft (5) DVT prophylaxis Current Visit: No Status: Acute Code(s): ZQX1960 - SNOMED Code(s): 433947884 Comment: -Continue SCDs given recent GIB due to PUD Status and Disposition: -For possible D/C Home in AM -Will await official input from Dr. Chamberlain
[2018-02-25] MEDS ORDERED: Acetaminophen TAB* 325 MG PO PRN (16:19)
[2018-02-25] MEDS: Lidocaine PATCH 5%* 1 PATCH TRANSDERM SCH (18:34)
[2018-02-25] MEDS: HYDROmorphone INJ1* 1 MG/ML SYRINGE IV SLOW PU PRN (19:28)
--- NOTE | 2018-02-25 22:34 | CONS ---
CONSULTATION REPORT: DATE OF CONSULT: 02/25/18 HISTORY OF PRESENT ILLNESS: The patient is a very pleasant 77-year-old female who was recently admitted on 02/19/18 for upper GI bleed. She was intubated in the emergency room and had massive transfusion protocol. The patient was admitted in the ICU for several days, was extubated and we were requested to see the patient by Dr. Edgar because of the history of the previous L3 and sacral insufficiency fractures and complaints of back pain. The patient was examined in the floor room with the presence of her and the assistance of her nurse, John. In short, the patient had previous fall in the end of December, while she was walking outside her porch. She hit her lower back against the stairs and at that time she was diagnosed with sacral insufficiency fractures and possible chronic or subacute L3 compression fracture. The patient was treated conservatively and was able to ambulate. Her pain had significantly improved until recently, last Sunday, the day of her admission, she was reported to have sustained a fall in her bathroom while she was trying to put on her underwear. The patient had increase of her back pain and her helped her to the bed. After a while she started having hematemesis and for this reason she was brought to the emergency room. The patient at this point reports that she was able to ambulate with a walker. Her pain still is significant. She denies any neck pain. She denies any loss of consciousness. She denies any weakness, numbness or tingling of her extremities. She denies any urinary or GI incontinence, although she reports that when she needs to go the bathroom, she most often will not able be make it in time because of pain. The patient has history of short memory deficit and her main caregiver is her who is at her bedside. PAST MEDICAL HISTORY: 1. Diabetes. 2. Hypertension. 3. Depression. PAST SURGICAL HISTORY: 1. Oophorectomy. 2. Hysterectomy. MEDICATIONS: The patient is currently on multiple medications including, 1. Amlodipine. 2. Atenolol. 3. Fentanyl. 4. Hydralazine 5. Hydromorphone. 6. Insulin. 7. Lidocaine. 8. Metformin. 9. Metoprolol. 10. Ondansetron. 11. Pantoprazole. 12. Sertraline. 13. Sucralfate. ALLERGIES: No known drug allergies. FAMILY HISTORY: Diabetes. SOCIAL HISTORY: Tobacco, negative. The patient is a former smoker. Alcohol, negative. Recreational drug use, negative. PHYSICAL EXAM: The patient is not in acute distress. She is awake, alert, oriented x1 and this is her baseline as her reports. Her pupils are equal and reactive. Cranial nerves II through XII grossly intact. Motor 4-5/5 in the lower extremities. Sensory grossly intact to light touch. Deep tendon reflexes, +1 bilaterally. No clonus, no Babinski. Akhtar's negative. Straight leg test negative in sitting position. The patient has no tenderness on palpation of the cervical spine. She has free range of motion of the cervical spine. She does have some mild tenderness on palpation of her lower lumber spine. DIAGNOSTIC STUDIES/LAB DATA: The patient had an x-ray of her lumbar spine revealing the chronic compression fracture at L3 without significant kyphosis. The patient also had CT scan of her lumbar spine that revealed the chronic L3 compression deformity with possible acute L2 superior end-plate fracture, which is localized in the anterior vertebral body with also transverse fracture at S2 with callous formation and transverse fracture at L1 with sclerotic edges. ASSESSMENT: The patient is a very pleasant 77-year-old female status post falls and chronic L3 and sacral insufficiency fractures with recent fall, acute L2 anterior fracture and episode of upper gastrointestinal hemorrhage. PLAN: The patient at this point is recovering from her recent episode of GI hemorrhage. Based on her imaging, The patient does have chronic deformity of L3 , which may represent chronic fracture and the possibility of newer L2 fracture with what seems to be a healing fracture at the level of S2. We discussed in detail with the patient and her regarding treatment options including conservative treatment with LSO brace for comfort and gentle ambulation with the assist of a walker versus surgical intervention in the form of stabilization with pedicle screws and iliac and sacral screws. We discussed risks and benefits of its approach. Given the presence of her comorbidities, the patient's age, the limited baseline mobility and prior mental status as well as the recent GI hemorrhage, the would like to continue with conservative treatment understanding the possibility of further deformity, displacement of fracture and injury to neural structures including cauda equina and loss of bladder and bowel control. Because of the presence of STIR changes in her previous MRI and recent complaints of increased pain, we would recommend a repeat MRI of her lumbar spine with and without contrast to exclude the remote possibility of infection versus neoplastic lesion if the patient can tolerate the study. The patient and her are in agreement with the plan. Thank you for allowing us to participate in the care of this patient. Please do not hesitate to contact our office in case you have any further questions or concerns regarding the care of this patient. [id number]/CPS #: [id number] MTDD
[2018-02-26 05:50] LABS: ABS Basophils 0.1 10^3/ul (0-0.2); ABS Eosinophils 0.3 10^3/ul (0-0.6); ABS Monocytes 1.1 10^3/ul (0-0.8); ABS Neutrophils 5.8 10^3/ul (1.5-7.7); ABS Nucleated RBC 0 10^3/ul; Eosinophil % 3.1 % (0-6); Hematocrit 27 % (35-47); Hemoglobin 9.2 g/dl (12.0-16.0); Lymphocyte % 12.7 % (25-47); Mean Corpuscular HGB Conc 34 g/dl (31-36); Mean Corpuscular Hemoglobin 29 pg (27-31); Mean Corpuscular Volume 86 fL (80-97); Mean Platelet Volume 6.9 fL (7.4-10.4); Nucleated Red Blood Cells % 0; Platelet Count 368 10^3/ul (150-450); Red Blood Count 3.15 10^6/ul (4.00-5.40); Red Cell Distribution Width 15 % (10.5-15); White Blood Count 8.2 10^3/ul (3.5-10.8)
[2018-02-26 06:11] LABS: EGFR Non-African American 106.9 (>60)
[2018-02-26] MEDS: Lidocaine Patch REMOVE* 1 NOTE MISC PATCH OFF SCH (07:28)
[2018-02-26] MEDS: fentaNYL Patch Check Q Shift 1 NOTE FOLLOW UP SCH ×2 (07:38→18:09)
[2018-02-26] MEDS: Insulin LISPRO* 1 UNITS UNIT SUBCUT SCH ×4 (08:35→21:08)
[2018-02-26] MEDS: Pantoprazole IV* 40 MG IV SCH ×2 (08:44→21:10)
[2018-02-26] MEDS: Sertraline* 100 MG TAB PO SCH ×2 (08:44→21:02)
[2018-02-26] MEDS: metFORMIN* 500 MG TAB PO SCH ×2 (08:44→21:02)
[2018-02-26] MEDS: amLODIPine TAB* 5 MG PO SCH (08:44)
[2018-02-26] MEDS: Atenolol TAB* 50 MG PO SCH (08:44)
[2018-02-26] MEDS: Sucralfate TAB* 1 GM PO SCH ×3 (10:49→21:07)
--- NOTE | 2018-02-26 12:17 | PN ---
Subjective Date of Service: 02/26/18 Interval History: Dr. Guidry saw pt last night and requested MRI lumbar w/ w/o contrast to rule out infection and neoplasm. Pt denies chest pain, SOB, abdominal pain, F/C/N/V Pt has had "nasty" greasy dark BM. no back pain currently. Does not currently have a brace. Objective Active Medications: Acetaminophen (Tylenol Tab*) 650 mg PO Q6H PRN PRN Reason: PAIN Last Admin: 02/25/18 16:47 Dose: 650 mg Amlodipine Besylate (Norvasc Tab*) 10 mg PO DAILY [facility] Last Admin: 02/26/18 08:44 Dose: 10 mg Atenolol (Tenormin Tab*) 75 mg PO DAILY [facility] Last Admin: 02/26/18 08:44 Dose: 75 mg Fentanyl (Duragesic Patch 25 Mcg/Hr*) 25 mcg TRANSDERM Q72H [facility] Last Admin: 02/24/18 20:19 Dose: 25 mcg Heparin Sodium (Porcine) (Heparin Flush Picc/Ml/Cvc(*)) 0 ml FLUSH 0600,1800 [facility]; Protocol Last Admin: 02/26/18 07:27 Dose: Not Given Hydralazine HCl (Apresoline Iv*) 5 mg IV SLOW PU Q2H PRN PRN Reason: for SBP>160 Last Admin: 02/22/18 02:05 Dose: 5 mg Hydromorphone HCl (Dilaudid Inj1s*) 1 mg IV SLOW PU Q2HR PRN PRN Reason: moderate pain Last Admin: 02/25/18 19:28 Dose: 1 mg Insulin Human Lispro (Humalog*) 0 units SUBCUT ACHS [facility]; Protocol Last Admin: 02/26/18 08:35 Dose: Not Given Lidocaine (Lidoderm 5% Patch*) 1 patch TRANSDERM 1800 [facility] Last Admin: 02/25/18 18:34 Dose: 1 patch Metformin HCl (Glucophage*) 500 mg PO BID [facility] Last Admin: 02/26/18 08:44 Dose: 500 mg Metoprolol Tartrate (Lopressor Iv*) 5 mg IV Q6H PRN PRN Reason: for SBP>160 and HR>100 Last Admin: 02/23/18 11:36 Dose: 5 mg Ondansetron HCl (Zofran Inj*) 4 mg IV Q4H PRN PRN Reason: NAUSEA/VOMITING Last Admin: 02/23/18 11:19 Dose: 4 mg Pantoprazole Sodium (Protonix Iv*) 40 mg IV BID [facility] Last Admin: 02/26/18 08:44 Dose: 40 mg Pharmacy Profile Note (Lidocaine Patch Remove*) 1 note PATCH OFF 0600 [facility] Last Admin: 02/26/18 07:28 Dose: 1 note Pharmacy Profile Note (Fentanyl Patch Check Q Shift) 1 note FOLLOW UP 0700, 1900 [facility] Last Admin: 02/26/18 07:38 Dose: 1 note Sertraline HCl (Zoloft*) 100 mg PO BID [facility] Last Admin: 02/26/18 08:44 Dose: 100 mg Sucralfate (Carafate*) 1 gm PO TID [facility] Last Admin: 02/26/18 10:49 Dose: 1 gm Vital Signs - 8 hr 02/26/18 08:39 Temperature 97.7 F Pulse Rate 88 Respiratory 16 Rate Blood Pressure 126/43 (mmHg) O2 Sat by Pulse 98 Oximetry Oxygen Devices in Use Now: None Appearance: NAD, sitting in chair. Eyes: No Scleral Icterus, PERRLA Ears/Nose/Mouth/Throat: NL Teeth, Lips, Gums, Mucous Membranes Moist Neck: NL Appearance and Movements; NL JVP, Trachea Midline Respiratory: Symmetrical Chest Expansion and Respiratory Effort, Clear to Auscultation Cardiovascular: NL Sounds; No Murmurs; No JVD, RRR, No Edema Abdominal: NL Sounds; No Tenderness; No Distention, No Hepatosplenomegaly, - Skin: No Rash or Ulcers Neurological: Alert and Oriented x 3, NL Sensation, NL Muscle Strength and Tone Nutrition: Taking PO's Result Diagrams: 02/26/18 05:11 02/26/18 05:11 Additional Lab and Data: Laboratory Results - last 24 hr 02/25/18 02/25/18 02/26/18 12:57 22:37 05:11 WBC 8.2 RBC 3.15 L Hgb 9.2 L Hct 27 L MCV 86 MCH 29 MCHC 34 RDW 15 Plt Count 368 MPV 6.9 L Neut % (Auto) 70.6 Lymph % (Auto) 12.7 L [place] % (Auto) 12.9 H Eos % (Auto) 3.1 Baso % (Auto) 0.7 Absolute Neuts (auto) 5.8 Absolute Lymphs (auto) 1.0 Absolute Monos (auto) 1.1 H Absolute Eos (auto) 0.3 Absolute Basos (auto) 0.1 Absolute Nucleated RBC 0 Nucleated RBC % 0 Sodium Potassium Chloride Carbon Dioxide Anion Gap BUN Creatinine Est GFR ( Amer) Est GFR (Non-Af Amer) BUN/Creatinine Ratio Glucose POC Glucose (mg/dL) 98 138 H Calcium Phosphorus Magnesium Total Bilirubin AST ALT Alkaline Phosphatase Total Protein Albumin Globulin Albumin/Globulin Ratio 02/26/18 02/26/18 02/26/18 05:11 07:47 11:58 WBC RBC Hgb Hct MCV MCH MCHC RDW Plt Count MPV Neut % (Auto) Lymph % (Auto) [place] % (Auto) Eos % (Auto) Baso % (Auto) Absolute Neuts (auto) Absolute Lymphs (auto) Absolute Monos (auto) Absolute Eos (auto) Absolute Basos (auto) Absolute Nucleated RBC Nucleated RBC % Sodium 135 Potassium 3.9 Chloride 101 Carbon Dioxide 28 Anion Gap 6 BUN 8 Creatinine 0.55 Est GFR ( Amer) 129.3 Est GFR (Non-Af Amer) 106.9 BUN/Creatinine Ratio 14.5 Glucose 141 H POC Glucose (mg/dL) 141 H 171 H Calcium 8.9 Phosphorus 3.8 Magnesium 1.4 L Total Bilirubin 0.40 AST 10 L ALT 7 Alkaline Phosphatase 159 H Total Protein 5.7 L Albumin 3.0 L Globulin 2.7 Albumin/Globulin Ratio 1.1 Microbiology and Other Data: Microbiology 02/19/18 09:07 Nasal Nasal Screen MRSA (PCR) - Final Mrsa Not Detected Assess/Plan/Problems-Billing Assessment: 77 yo female PMH HTN, DM, HLD recent lumbar compression fx (ran out of her 30 day opioids and was using NSAIDS) p/w hemorraghic shock. s/p EGD 01/21 with 2 very larg gastric ulcers. ICU Course: 02/19: Intubated; shock due to blood loss, hematemesisintubation for airway protection; S/P EGD showing PUD ; transfused; placed on pressors 02/20: Stable H&H and off pressors 02/21: Still intubated but subsequently extubated; Increase of Fentanyl 02/22: HTN and respiratory distress post-extubation; S/P Lasix RxStabilized; developed fever but CXR NAD 02/23: Stable; Hungry; Decreased sats and was placed on 10L O2 then weaned down 02/24: Stablefloor transfer - Patient Problems (1) PUD (peptic ulcer disease) Current Visit: Yes Status: Acute Code(s): K27.9 - PEPTIC ULC, SITE UNSP, UNSP AC OR CHR, W/O HEMOR OR PERF SNOMED Code(s): 01066677 Comment: -swithc Pantoprazole from IV to PO BID -Continue Carafate (2) Upper GI hemorrhage Current Visit: Yes Status: Acute Code(s): K92.2 - GASTROINTESTINAL HEMORRHAGE, UNSPECIFIED SNOMED Code(s): 39752364 Comment: resolved, hgb stable (3) Hypovolemic shock Current Visit: Yes Status: Acute Code(s): R57.1 - HYPOVOLEMIC SHOCK SNOMED Code(s): 19190759 Comment: resolved. (4) Lumbar compression fracture Current Visit: Yes Status: Acute Code(s): S32.000A - WEDGE COMPRESSION FRACTURE OF UNSP LUMBAR VERTEBRA, INIT SNOMED Code(s): 633988732 Comment: - Dr. Chamberlain requesting MRI lumbar spine w wo to rule out infection or malignancy --- interval developement of nondisplaced anterior column L2 with associated edema; bilateral sacral insufficiency fractures. multilevel neuroforaminal narrowing. - requested LSO brace - rep from [facility] here later -Continue Lidocaine and Fentanyl patchesotherwise pain well controlled -Continue PRN IV Dilaudid -Currently has been walking to the bathroom with a walker -PT eval: no further PT needs identified (5) DVT prophylaxis Current Visit: No Status: Acute Code(s): CFT0095 - SNOMED Code(s): 575066038 Comment: -Continue SCDs given recent GIB due to PUD (6) Depression Current Visit: No Status: Chronic Code(s): F32.9 - MAJOR DEPRESSIVE DISORDER , SINGLE EPISODE, UNSPECIFIED SNOMED Code(s): 28156807 Comment: -Continue Zoloft (7) Diabetes Current Visit: No Status: Chronic Code(s): E11.9 - TYPE 2 DIABETES MELLITUS WITHOUT COMPLICATIONS SNOMED Code(s): 21833004 Comment: - Glucose 130-180's - Consistent carb diet - continue Metformin (8) Hypertension Current Visit: No Status: Chronic Code(s): I10 - ESSENTIAL (PRIMARY) HYPERTENSION SNOMED Code(s): 38236190 Comment: -Well-controlled -Continue Amlodipine 10 , Atenolol 75, and PRN IV meds Status and Disposition: medicine inpatient, likely d/c 02/27
[2018-02-26] MEDS ORDERED: LORazepam INJ* 2 MG/ML 1 ML VIAL IV PUSH ONE (14:21)
[2018-02-26] MEDS ORDERED: Gadoteridol* (CONTRAST) 279.3 MG/ML 10 ML IV ONE (15:12)
[2018-02-26] MEDS: HYDROmorphone INJ1* 1 MG/ML SYRINGE IV SLOW PU PRN (16:08)
[2018-02-26] MEDS: Lidocaine PATCH 5%* 1 PATCH TRANSDERM SCH (18:08)
--- NOTE | 2018-02-26 21:50 | PN ---
Progress Note - Progress Note Date of Service: 02/26/18 SOAP: Subjective: [] No events ON. Patient had MRI earlier. Ambulates with walker. Tolerates po. Objective: []AAOx1-2, PRECIOUS, CNII- XII grossly intact Motor 4-5/5 Sensory grossly intact to light touch Assessment: [] 77 yof L2#, chronic L3 #, Sacral fracture Plan: []Monitor VS, neurochecks MRI revealed L1 acute anterior fracture, sacral insufficiency fractures No definite indication of neoplasia, infection. Discussed again with patient's regarding imaging findings, possible treatment options with surgical intervention, vs conservative treatment. Patient;s understands risks and benefits of each approach and after discussing with his family he would like to continue with conservative approach. Brace at bedside. OOB with walker and brace only. Minimal weight bearing as tolerated. Fall precautions. Osteoporosis management. May follow up in office in 2-4 weeks with new XR of lumbar spine. Genaro Soto MD
[2018-02-27] MEDS: fentaNYL Patch Check Q Shift 1 NOTE FOLLOW UP SCH (06:27)
[2018-02-27] MEDS: Lidocaine Patch REMOVE* 1 NOTE MISC PATCH OFF SCH (06:27)
[2018-02-27] MEDS: Insulin LISPRO* 1 UNITS UNIT SUBCUT SCH ×2 (07:42→12:11)
[2018-02-27] MEDS ORDERED: Omeprazole CAP* 20 MG PO SCH (09:00)
[2018-02-27] MEDS: amLODIPine TAB* 5 MG PO SCH (09:25)
[2018-02-27] MEDS: Atenolol TAB* 50 MG PO SCH (09:26)
[2018-02-27] MEDS: metFORMIN* 500 MG TAB PO SCH (09:26)
[2018-02-27] MEDS: Sertraline* 100 MG TAB PO SCH (09:27)
[2018-02-27] MEDS: Sucralfate TAB* 1 GM PO SCH (09:36)
[2018-02-27] MEDS ORDERED: Sucralfate TAB* 1 GM PO SCH (11:00)
[2018-02-27 13:08] VITALS: BP 106/40
--- NOTE | 2018-02-28 22:38 | DS ---
DISCHARGE SUMMARY: DATE OF ADMISSION: 02/19/18 DATE OF DISCHARGE: 02/27/18 ADMITTING PROVIDER: Diagnostic Radiologist, Wicho Edgar MD PRIMARY CARE PROVIDER: Dr. Shane Bhandari. CONSULTING NEUROSURGEON: Dr. Soto. CONSULTING REPRESENTATIVE PHLEBOTOMY SERVICES: Dr. Himanshu Gillette. CONSULTING GI PHYSICIAN: Dr. Tarun Gibbons and Dr. Valerie Aldrich. CHIEF COMPLAINT: Vomiting of blood, altered mental status. PRINCIPAL DIAGNOSES: Hemorrhagic shock secondary to acute blood loss anemia secondary to gastric ulcer in the setting of recent increased NSAID use; progression of lumbar compression fracture. HISTORY OF PRESENT ILLNESS AND HOSPITAL COURSE: Keshia Garcia is a 77-year-old female with a past medical history of hypertension, diabetes mellitus, hyperlipidemia, recent lumbar compression fracture for which she was initially getting Percocet, but have run out and for the last 4 days, was taking increased doses of NSAIDs at home. Please see H and P of Dr. Wicho Edgar for full details. She has started to vomit blood, was taken to the [facility] Emergency Room where she was intubated for declining mental status and airway protection. Her initial blood pressures were in the 90s, but last one had fallen to the 40s. She was started on massive transfusion protocol and Levophed. A central line was placed. GI physicians were consulted and she would eventually have upper endoscopy on the same day of admission, which found abdominal gastric ulcer of the high lesser curvature along with other small ulcers. She had been on Protonix drip. Her blood pressures eventually stabilized and she was able to be extubated on 02/21/18. She had a pain consult with Dr. Gillette, was placed on a fentanyl patch. She received some Lasix for some respiratory distress and high blood pressure post-extubation. On 02/23/18, she again had some hypoxic respiratory failure, required 10 L, was able to be weaned down after she had some diuresis and on 02/24/18, she was transferred to the floor. Dr. Soto of Neurosurgery consulted on the case, and she had variety of imaging studies includin. Lumbar spine AP lateral x-ray on 02/25/18, approximately 25% compression of L3 vertebra superior end-plate unchanged from previous exam. 2. CT lumbar without on 02/25/18, there was a new horizontal incomplete fracture involving the anterior aspect of the L2 vertebral body. There are sacral insufficiency fractures which have progressed from the prior study. 3. There is chronic compression fracture of the L3 vertebral body, which appears unchanged. 4. Moderate lumbar spondylitic changes. Dr. Soto requested a lumbar MRI with and without to rule out infection or masses. Impression: 1. There has been interval development of a nondisplaced fracture involving ___ __ with associated edema. This corresponds to the fracture noted on CT. 2. Again noted are bilateral sacral insufficiency fractures with one anterolisthesis of S1 on S2. 3. Degenerative disk disease and osteoarthritis with stable Modic type 1 reactive end-plate changes at L3-L4. 4. There is multilevel neuroforaminal narrowing as described above. 5. There is moderate narrowing of the central canal at L3-L4 with moderate narrowing at L2-L3. Dr. Soto recommended LSO brace to be applied and to follow up in 2 weeks with him. The patient worked with Physical Therapy both with and without the brace and did well. In terms of her pain control, she had the fentanyl patch on and did require 1 mg of IV Dilaudid when she had her imaging procedures done on 02/25/18 and 02/26. Her hemoglobin stabilized, been in the mid 9s since 02/23/18. The lowest recorded hemoglobin during the admission was 7.3 on the same day of admission. She received a total of 5 packed red blood cells, 3 FFP, 1 platelets. DISCHARGE MEDICATIONS: Include, 1. Tylenol 650 mg p.o. q.6 hours p.r.n. 2. Amlodipine 5 mg p.o. daily. 3. Atenolol 75 mg p.o. daily. 4. Cholecalciferol 5000 units p.o. daily. 5. Cranberry fruit extract 200 mg p.o. daily. 6. Cyanocobalamin 500 mcg p.o. daily. 7. Fentanyl patch 12 mcg change every 72 hours (new). 8. Metformin 500 mg p.o. b.i.d. 9. Omeprazole 20 mg p.o. b.i.d. (new). 10. Oxycodone/acetaminophen 2.5/325 mg p.o. q.8 hours p.r.n. (new). 11. MiraLAX 17 g p.o. daily. (New). 12. Sennoside/docusate sodium 1 tab p.o. daily (new). 13. Sertraline 100 mg p.o. b.i.d. 14. Carafate 1 g 3 times a day at 6 a.m., 11 a.m. and 10 p.m. (new). 15. Triamcinolone 1 application topical b.i.d. 16. Coenzyme Q mg p.o. daily. She should stop taking the aspirin 325 mg daily until she get a followup with her primary care provider and GI physician and likely not go on more than 81 mg daily if she returns to it. FOLLOWUP: She is recommended to follow with Dr. Delta Miranda of GI, Dr. Shane Bhandari, her PCP, and Dr. Katrin Soto within 2 weeks. She should avoid all NSAIDs. DISCHARGE DIET: Heart healthy, carbohydrate consistent, unchanged. TIME SPENT: Time spent on discharge 40 minutes. [id number]/[facility] #: [id number] FABI
== END 2018-02-27 16:05 | disposition home health service (06) | DRG 377 ==
LOC: ED 07:37 → ICU 08:42 → MED 02-24 15:40
PROVIDERS: ADMIT Internal Medicine Critical Care Medicine; ATTEND Internal Medicine
PROC: 0BH17EZ Insertion of Endotracheal Airway into Trachea, Via Natural or Artificial Opening (ICD-10-PCS; principal; 2018-02-19)
PROC: 3E033XZ Introduction of Vasopressor into Peripheral Vein, Percutaneous Approach (ICD-10-PCS; 2018-02-19)
PROC: 0T9B70Z Drainage of Bladder with Drainage Device, Via Natural or Artificial Opening (ICD-10-PCS; 2018-02-19)
PROC: 04HL33Z Insertion of Infusion Device into Left Femoral Artery, Percutaneous Approach (ICD-10-PCS; 2018-02-19)
PROC: 05HM33Z Insertion of Infusion Device into Right Internal Jugular Vein, Percutaneous Approach (ICD-10-PCS; 2018-02-19)
PROC: B543ZZA Ultrasonography of Right Jugular Veins, Guidance (ICD-10-PCS; 2018-02-19)
PROC: 30233K1 Transfusion of Nonautologous Frozen Plasma into Peripheral Vein, Percutaneous Approach (ICD-10-PCS; 2018-02-19)
PROC: 30233N1 Transfusion of Nonautologous Red Blood Cells into Peripheral Vein, Percutaneous Approach (ICD-10-PCS; 2018-02-19)
PROC: 30233R1 Transfusion of Nonautologous Platelets into Peripheral Vein, Percutaneous Approach (ICD-10-PCS; 2018-02-19)
PROC: 5A1945Z Respiratory Ventilation, 24-96 Consecutive Hours (ICD-10-PCS; 2018-02-19)
PROC: 3E0G8GC Introduction of Other Therapeutic Substance into Upper GI, Via Natural or Artificial Opening Endoscopic (ICD-10-PCS; 2018-02-19)
PROC: 0W3P8ZZ Control Bleeding in Gastrointestinal Tract, Via Natural or Artificial Opening Endoscopic (ICD-10-PCS; 2018-02-19)
PROC: 0DJ08ZZ Inspection of Upper Intestinal Tract, Via Natural or Artificial Opening Endoscopic (ICD-10-PCS; 2018-02-21)
PROC: 0BP1XDZ Removal of Intraluminal Device from Trachea, External Approach (ICD-10-PCS; 2018-02-22)
DX: K25.4 Chronic or unspecified gastric ulcer with hemorrhage (principal); R57.1 Hypovolemic shock; J96.01 Acute respiratory failure with hypoxia; D62 Acute posthemorrhagic anemia; G93.40 Encephalopathy, unspecified; M48.56XA Collapsed vertebra, not elsewhere classified, lumbar region, initial encounter for fracture; M84.48XA Pathological fracture, other site, initial encounter for fracture; E78.5 Hyperlipidemia, unspecified; E11.9 Type 2 diabetes mellitus without complications; I10 Essential (primary) hypertension; I48.91 Unspecified atrial fibrillation; F32.9 Major depressive disorder, single episode, unspecified; I95.9 Hypotension, unspecified; T39.395A Adverse effect of other nonsteroidal anti-inflammatory drugs [NSAID], initial encounter; Y92.9 Unspecified place or not applicable; Z90.710 Acquired absence of both cervix and uterus; Z87.891 Personal history of nicotine dependence; Z83.3 Family history of diabetes mellitus; Z79.84 Long term (current) use of oral hypoglycemic drugs; M47.816 Spondylosis without myelopathy or radiculopathy, lumbar region
CPT/HCPCS: 36415; 71045; 72100; 72131; 72158; 80048; 80053; 80076; 82330; 82550; 82803; 83036; 83605; 83735; 84100; 85014; 85018; 85025; 85027; 85049; 85384; 85610; 85730; 86850; 86900; 86901; 86922; 86927; 87641; 93005; 94003; 99285; A9270-GY; A9579; G8978-GP-CI; G8979-GP-CI; G8980-GP-CI; J0171; J0330; J0360; J0610; J1170; J1940; J2060; J2250; J2405; J2704; J2997; J3010; J3475; J3480; J3490; P9016; P9017; P9035; P9040